=== PATIENT | female | born 1965 | race Caucasian/White ===

== ENCOUNTER 2024-04-12 10:16 | Emergency (ER) | payer OTHER, SELFPAY ==
--- NOTE | ~2024-04-12 | XR_ITS ---
EXAMINATION: XR CHEST CLINICAL INFORMATION: cough, syncope COMPARISON: None available. TECHNIQUE: 2 views of the chest were obtained. FINDINGS: The cardiac, hilar, and mediastinal contours are normal. The lungs are clear bilaterally. There is no pneumothorax or pleural effusion. There is no focal osseous or soft tissue abnormality. Plate and screw fixation of old left clavicular fracture. Cholecystectomy clips in the right upper quadrant. XR/XR chest 2V IMPRESSION: No active pulmonary disease. Electronically signed by: Aniket Azul MD 04/12/2024 11:20 AM [facility]
--- NOTE | ~2024-04-12 | CT_ITS ---
EXAMINATION: CT FACIAL BONES WITHOUT CONTRAST CLINICAL INFORMATION: Head strike, fall, trauma. COMPARISON: None available. TECHNIQUE: Spiral CT of the maxillofacial bones was obtained without IV contrast. Sagittal, coronal, and thin section axial reformatted images were constructed from the axial data set. This CT examination was performed using dose optimization techniques as appropriate, variously including the following: *Automated exposure control *Adjustment of mA and/or kV according to patient size (this includes techniques or standardized protocols for targeted exams where dose is matched to indication/reason for exam; i.e. extremities or head) *Use of iterative reconstruction technique DLP: 271 mGy-cm FINDINGS: -There are comminuted nasal bone fractures bilaterally, presumably acute. Maxillary spines are intact. -No additional fracture of the maxillofacial region. Orbits are intact. -Mandible is intact. -TM joints are intact. -Zygomatic arches are intact. -Pterygoid plates are intact. -Petrous temporal bones are intact. -Calvarium is intact. -Soft tissue laceration to the left upper lip region. Mild soft tissue swelling of the nasion and in the region of the glabella. CT/CT facial bones wo IV con IMPRESSION: 1. Comminuted bilateral nasal bone fractures, presumably acute. No additional maxillofacial fracture. 2. Soft tissue laceration left upper lip. Electronically signed by: Aniket Azul MD 04/12/2024 12:28 PM [facility] [place] [place]
--- NOTE | ~2024-04-12 | CT_ITS ---
EXAMINATION: CT CERVICAL SPINE WITHOUT CONTRAST CLINICAL INFORMATION: Fall, head strike, facial trauma, neck pain. COMPARISON: None available. TECHNIQUE: Spiral CT of the cervical spine was performed in the axial plane from the skull base to the thoracic inlet without IV contrast. Sagittal, coronal, and thin section axial reformatted images were constructed from the axial data set. This CT examination was performed using dose optimization techniques as appropriate, variously including the following: *Automated exposure control *Adjustment of mA and/or kV according to patient size (this includes techniques or standardized protocols for targeted exams where dose is matched to indication/reason for exam; i.e. extremities or head) *Use of iterative reconstruction technique DLP: 413 mGy-cm FINDINGS: -No fracture, compression deformity, or traumatic subluxation. No focal suspicious bony abnormality. -There is a minimal levoconvex scoliosis, apex at C5. -There is reversal of the normal lordosis, centered at C5, nonspecific. -There is a 2 mm degenerative type anterolisthesis C3 on C4, and a 3 mm degenerative retrolisthesis C5 on C6. -Alignment is otherwise anatomic. Craniocervical Junction/C1-C2 Articulations: Intact and aligned. Discs: Severe loss of disc height C5-6. Otherwise only mild loss of disc height. Spinal Canal: -No congenital abnormality. -Moderate central canal narrowing is present C5-6 due to a dorsal disc osteophytic ridge complex. -Mild central canal stenosis at C6-7 due to a central disc protrusion. Cervical Soft Tissues: -The visualized extracranial head/neck soft tissues are unremarkable within the limitations of the study. Other: -Fixation hardware left clavicle noted. -Lung apices clear. -Normal thyroid. CT/CT cervical spine wo IV con IMPRESSION: 1. No CT evidence of fracture or acute traumatic injury to the cervical spine. 2. There is relatively severe disc degeneration focally at C5-6, where there is a dorsal disc osteophytic ridge complex resulting in at least moderate central canal stenosis and likely cord impingement. Correlation with MRI in a nonemergent setting recommended. 3. Ancillary findings as discussed above. Electronically signed by: Aniket Azul MD 04/12/2024 12:37 PM [facility] [place]
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
[2024-04-12 10:19] VITALS: BP 141/86; PULSE 87; RESP 18; TEMP 37; O2SAT 99; BMI 36.6
--- NOTE | 2024-04-12 10:26 | ED_ITS ---
HPI - General Adult General Chief complaint: Syncope Stated complaint: Syncopal episode earlier Time Seen by Provider: 04/12/24 10:25 Source: patient Mode of arrival: ambulatory Limitations: no limitations History of Present Illness ED Provider: Kandy Suarez PA-C HPI narrative: Patient is a 59 year old assigned female at with a history of asthma presenting to the emergency department today with facial pain after a syncopal episode. Patient states that she had a coughing fit this morning when she woke up on the floor after hitting her face. Patient states that she coughed so hard, she passed out. Patient states that this has never happened before and she is not on any anti coagulant medications. Patient denies any dizziness, lightheadedness, abdominal pain, nausea, vomiting, fever, chills, blurry vision, double vision, loss of vision, chest pain, difficulty breathing, shortness of breath, back pain, night sweats, pain with urination, increased urinary frequency, increased urinary urgency, blood in her urine or stool, bowel incontinence, bladder incontinence, or any other complaints at this time. Location: face Relieving factors: none Exacerbating factors: none Associated symptoms: cough and syncope Treatments prior to arrival: none Related Data Previous Rx's ?Medication ?Instructions ?Recorded amoxicillin 875 mg-potassium 1 tab PO BID 10 days #20 tabs 04/12/24 clavulanate 125 mg tablet Allergies Allergy/AdvReac Type Severity Reaction Status Date / Time Sulfa (Sulfonamide AdvReac Stomach Verified 04/12/24 10:21 Antibiotics) Upset Review of Systems 2 Constitutional: Constitutional: Reports no additional constitutional complaints, Denies chills, Denies fever(s) and Denies night sweats Eyes: Eyes: Reports no additional eye complaints, Denies blurry vision, Denies change in vision, Denies diplopia, Denies eye discharge, Denies loss of vision and Denies eye pain ENT: Denies dizziness Comments: facial pain Cardiovascular: Cardiovascular: Reports no additional cardiovascular complaints, Denies chest pain, Reports syncope, Denies lightheadedness, Denies Loss of Consciousness and Denies dyspnea Respiratory: Respiratory: Reports no additional respiratory complaints, Reports cough and Denies dyspnea Gastrointestinal: Gastrointestinal: Reports no additional gastrointestinal complaints, Denies abdominal pain, Denies melena, Denies hematochezia, Denies change in bowel habits and Denies change in stool character Genitourinary: Genitourinary: Denies hematuria, Denies urinary frequency, Denies dysuria, Denies urinary incontinence, Denies urinary hesitancy and Denies urinary urgency Musculoskeletal: Musculoskeletal: Reports no additional musculoskeletal complaints, Denies numbness and Denies tingling Neurologic: Denies dizziness, Reports syncope, Denies loss of vision, Denies numbness and Denies tingling Psychiatric: Psychiatric: Reports no additional psychiatric complaints Endocrine: Endocrine: Reports no additional endocrine complaints Hematologic/Lymphatic: Hematologic/Lymphatic: Reports no additional hematologic/lymphatic complaints Allergic/Immunologic: Allergic/Immunologic: Reports no additional allergic/immunologic complaints [facility] Past Medical History Attestation statement: The following information was validated with the patient. Source: old records reviewed and nursing notes reviewed Social History Social History Advance Directives: No Advance Directives Information Provided: Yes Physical Exam ED Vital Signs: Vital Signs - 24 hr 04/12/24 10:19 04/12/24 11:09 04/12/24 11:10 Temperature 98.6 F Pulse Rate 87 87 Respiratory Rate 18 12 Blood Pressure 141/86 H Pulse Oximetry 99 99 Oxygen Delivery Method Room Air Room Air 04/12/24 13:14 Temperature 97.8 F Pulse Rate 83 Respiratory Rate 16 Blood Pressure 141/83 H Pulse Oximetry 97 Oxygen Delivery Method Room Air BMI result Body Mass Index 36.6 Const General: cooperative, no acute distress, alert and awake Nutritional Appearance: well nourished Orientation/consciousness: patient oriented x3 Limitations: no limitations [facility] Head: Yes normal to inspection Ears: hearing grossly normal bilaterally and external ears normal General nose exam: no nasal discharge noted and no epistaxis Face and sinus: Yes abrasion (to the bridge of nose and above the left upper lip) and No laceration Mouth: Normal oral and palatal mucosa present, no drooling and no muffled voice Eyes General: appearance normal, both eyes and all related structures Periorbital: periorbital findings normal Eyelids: Yes eyelids normal Conjunctivae: conjunctivae normal Pupils: Equal, round and reactive pupils present EOM: EOMs intact bilaterally Neck Neck: Yes normal visual inspection, Yes full ROM and Yes no lymphadenopathy Chest Chest palpation & inspection: normal inspection of the chest Resp Effort & Inspection: normal respiratory effort and able to speak in complete sentences GI Inspection: Yes normal to inspection Neuro General: patient oriented x3 and moves all extremities Cranial nerves: Yes Equal, round and reactive pupils present Cognition (Neuro): normal cognition Extrem General: Yes normal to inspection, Yes full ROM and Yes capillary refill normal Psych Appearance: grossly normal Mental Status: mental status grossly normal Affect: normal affect Attitude: cooperative Thought process: Normal thought process present Thought content: Normal thought content present Insight: Good insight present (Psych) Medications Administered Discontinued Medications Generic Name Dose Route Start Last Admin Trade Name Narendra PRN Reason Stop Dose Admin Albuterol Sulfate 2.5 mg 04/12/24 10:59 04/12/24 11:09 Albuterol Sulfate (0.083%) 2.5 Mg/3 Ml Vial.Neb INHALE 04/12/24 11:00 2.5 mg ONCE ONE Administration Methylprednisolone Sodium Succinate 60 mg 04/12/24 10:40 04/12/24 11:06 Methylprednisolone Sod Succ 125 Mg/2 Ml Vial IVPUSH 04/12/24 10:41 60 mg ONCE ONE Administration Medical Decision Making Medical Decision Making MDM Narrative: Patient is a 59 year old assigned female at with a history of asthma presenting to the emergency department today with facial pain after a syncopal episode. Patient's physical exam was as noted in the physical exam portion of this note. Patient's blood work showed a mildly elevated WBC count of 12.4 but were otherwise unremarkable. Patient's EKG was unremarkable. Patient's CT facial bones showed an acute nasal fracture. Patient's CT head was unremarkable. Patient's CT c-spine showed no acute process but did show severe disc degeneration at the C5-6 level. Patient's chest x-ray showed no acute process. Patient's clinical presentation is most consistent with a nasal fracture after a vasovagal syncopal episode triggered by a coughing fit. I explained my physical exam findings as well as all test results to the patient. I answered all questions asked by the patient. I stressed the importance of the patient taking her medication as directed (either prescribed or as the over the counter packaging recommends). I stressed the importance of the patient following up with her primary care provider, an ENT, and a sales administration specialist. I stressed the importance of the patient returning to the emergency department immediately if her symptoms were to worsen or if she were to develop any dizziness, shortness of breath, difficulty breathing, chest pain, blurry vision, loss of vision, nausea, vomiting, abdominal pain, fever, chills, back pain, or any other complaints. Patient verbalized agreement and understanding with this treatment plan and discharge. Differential Diagnosis Differential Diagnoses: The differential diagnosis associated with the presentation includes Nasal fracture Syncopal episode Vasovagal syncope Admission/Observation Consideration of admission/observation: Escalation of care including admission/observation considered Patient would have been admitted to the hospital had her work up had any findings where hospital admission was appropriate and her clinical presentation warranted hospital admission. Lab Data [facility] Lab Attestation statement: I reviewed the patient's lab results. My interpretation of these results are in the [facility] Rationale portion of this note. 04/12/24 10:53 04/12/24 10:53 Labs: Lab Results 04/12/24 Range/Units 10:53 WBC 12.4 H (4.8-10.8) X10*3/uL RBC 4.95 (4.20-5.50) X10*6/uL Hgb 12.0 (12.0-16.0) g/dl Hct 37.7 (37.0-47.0) % MCV 76.2 L (80.0-98.0) fL MCH 24.2 L (27.0-33.0) pg MCHC 31.8 (31.0-35.0) g/dl RDW 15.7 (11.0-16.0) % Plt Count 281 (160-400) X10*3/uL MPV 9.7 (9.4-12.3) fL Immature Gran % (Auto) 0.4 (0.0-0.4) % Neut % (Auto) 78.0 H (45-73) % Lymph % (Auto) 12.8 L (20-40) % [place] % (Auto) 4.8 (2-11) % Eos % (Auto) 3.4 (0-4) % Baso % (Auto) 0.6 (0-2) % Lymph # (Auto) 1.6 (1.2-4.9) X10*3/uL [place] # (Auto) 0.6 (0.1-1.2) X10*3/uL Eos # (Auto) 0.4 (0.0-0.4) X10*3/uL Baso # (Auto) 0.1 (0.0-0.2) X10*3/uL Abs Immat Gran (auto) 0.05 H (0.00-0.03) X10*3/uL Absolute Neuts (auto) 9.7 H (2.0-8.3) x10*3/uL Absolute Nucleated RBC 0.000 (0.0-0.012) X10*3/uL Nucleated RBC % (auto) 0.0 (0.0-0.2) /100WBC Hold Blue Top SEE NOTE Sodium 139 (135-145) mmol/L Potassium 4.0 (3.3-5.1) mmol/L Chloride 104 (96-108) mmol/L Carbon Dioxide 27 (22-29) mmol/L Anion Gap 12 (12-20) BUN 17 H (9-16) mg/dL Creatinine 0.82 (0.5-1.4) mg/dL Estim Creat Clear Calc 79.2 Estimated GFR > 60 Random Glucose 93 (60-115) mg/dL Calcium 9.5 (8.4-10.2) mg/dL Magnesium 1.9 (1.6-2.6) mg/dL Total Bilirubin 0.3 (0.0-1.0) mg/dL AST 22 (5-31) U/L ALT 32 H (0-31) U/L Alkaline Phosphatase 105 (39-117) U/L Troponin I High Sens < 2.7 (<3.5-17.0) ng/L Total Protein 7.6 (6.5-8.0) g/dL Albumin 4.0 (3.5-5.0) g/dL Influenza Type A (PCR) NEGATIVE (Negative) Influenza Type B (PCR) NEGATIVE (Negative) RSV RNA Qual (PCR) NEGATIVE (Negative) SARS-CoV-2 RNA (RT-PCR) NEGATIVE (Negative) Independent Interpretation I performed an independent interpretation of an: EKG, Plain X-Ray and CT Scan Interpretation: My interpretation is in agreement with the radiologist's impression of these imaging studies. L EXAMINATION: CT CERVICAL SPINE WITHOUT CONTRAST CLINICAL INFORMATION: Fall, head strike, facial trauma, neck pain. COMPARISON: None available. TECHNIQUE: Spiral CT of the cervical spine was performed in the axial plane from the skull base to the thoracic inlet without IV contrast. Sagittal, coronal, and thin section axial reformatted images were constructed from the axial data set. This CT examination was performed using dose optimization techniques as appropriate, variously including the following: *Automated exposure control *Adjustment of mA and/or kV according to patient size (this includes techniques or standardized protocols for targeted exams where dose is matched to indication/reason for exam; i.e. extremities or head) *Use of iterative reconstruction technique DLP: 413 mGy-cm FINDINGS: -No fracture, compression deformity, or traumatic subluxation. No focal suspicious bony abnormality. -There is a minimal levoconvex scoliosis, apex at C5. -There is reversal of the normal lordosis, centered at C5, nonspecific. -There is a 2 mm degenerative type anterolisthesis C3 on C4, and a 3 mm degenerative retrolisthesis C5 on C6. -Alignment is otherwise anatomic. Craniocervical Junction/C1-C2 Articulations: Intact and aligned. Discs: Severe loss of disc height C5-6. Otherwise only mild loss of disc height. Spinal Canal: -No congenital abnormality. -Moderate central canal narrowing is present C5-6 due to a dorsal disc osteophytic ridge complex. -Mild central canal stenosis at C6-7 due to a central disc protrusion. Cervical Soft Tissues: -The visualized extracranial head/neck soft tissues are unremarkable within the limitations of the study. Other: -Fixation hardware left clavicle noted. -Lung apices clear. -Normal thyroid. CT/CT cervical spine wo IV con IMPRESSION: 1. No CT evidence of fracture or acute traumatic injury to the cervical spine. 2. There is relatively severe disc degeneration focally at C5-6, where there is a dorsal disc osteophytic ridge complex resulting in at least moderate central canal stenosis and likely cord impingement. Correlation with MRI in a nonemergent setting recommended. 3. Ancillary findings as discussed above. Electronically signed by: Aniket Azul MD 04/12/2024 12:37 PM [facility] [place] Dictated By: Aniket Azul MD Signed By: Electronically signed by Aniket Azul MD 04/12/24 1237 EXAMINATION: CT HEAD WITHOUT CONTRAST CLINICAL INFORMATION: Head strike trauma COMPARISON: None available. TECHNIQUE: Contiguous axial imaging was performed from the skull base to vertex without intravenous administration of contrast. This CT examination was performed using dose optimization techniques as appropriate, variously including the following: *Automated exposure control *Adjustment of mA and/or kV according to patient size (this includes techniques or standardized protocols for targeted exams where dose is matched to indication/reason for exam; i.e. extremities or head) *Use of iterative reconstruction technique DLP: 602 mGy-cm FINDINGS: No intra or extra-axial fluid collection, hemorrhage, mass, or mass effect. Calvarium intact. CT/CT head/brain wo IV con IMPRESSION: No acute intracranial pathology. Electronically signed by: Quinn Segura MD 04/12/2024 12:06 PM [employer] Dictated By: Quinn Segura MD Signed By: Electronically signed by Quinn Segura MD 04/12/24 1206 EXAMINATION: XR CHEST CLINICAL INFORMATION: cough, syncope COMPARISON: None available. TECHNIQUE: 2 views of the chest were obtained. FINDINGS: The cardiac, hilar, and mediastinal contours are normal. The lungs are clear bilaterally. There is no pneumothorax or pleural effusion. There is no focal osseous or soft tissue abnormality. Plate and screw fixation of old left clavicular fracture. Cholecystectomy clips in the right upper quadrant. XR/XR chest 2V IMPRESSION: No active pulmonary disease. Electronically signed by: Aniket Azul MD 04/12/2024 11:20 AM [employer] Dictated By: Aniket Azul MD Signed By: Electronically signed by Aniket Azul MD 04/12/24 1120 EXAMINATION: CT FACIAL BONES WITHOUT CONTRAST CLINICAL INFORMATION: Head strike, fall, trauma. COMPARISON: None available. TECHNIQUE: Spiral CT of the maxillofacial bones was obtained without IV contrast. Sagittal, coronal, and thin section axial reformatted images were constructed from the axial data set. This CT examination was performed using dose optimization techniques as appropriate, variously including the following: *Automated exposure control *Adjustment of mA and/or kV according to patient size (this includes techniques or standardized protocols for targeted exams where dose is matched to indication/reason for exam; i.e. extremities or head) *Use of iterative reconstruction technique DLP: 271 mGy-cm FINDINGS: -There are comminuted nasal bone fractures bilaterally, presumably acute. Maxillary spines are intact. -No additional fracture of the maxillofacial region. Orbits are intact. -Mandible is intact. -TM joints are intact. -Zygomatic arches are intact. -Pterygoid plates are intact. -Petrous temporal bones are intact. -Calvarium is intact. -Soft tissue laceration to the left upper lip region. Mild soft tissue swelling of the nasion and in the region of the glabella. CT/CT facial bones wo IV con IMPRESSION: 1. Comminuted bilateral nasal bone fractures, presumably acute. No additional maxillofacial fracture. 2. Soft tissue laceration left upper lip. Electronically signed by: Aniket Azul MD 04/12/2024 12:28 PM [facility] [place] Dictated By: Aniket Azul MD Signed By: Electronically signed by Aniket Azul MD 04/12/24 1228 Vent. Rate: 080 BPM Atrial Rate: 080 BPM P-R Int: 168 ms QRS Dur: 088 ms QT Int: 388 ms P-R-T Axes: 041 214 012 degrees QTc Int: 447 ms Normal sinus rhythm Right superior axis deviation No previous ECGs available Referred By: Kandy Suarez Electronically Signed By:Edouard Castellanos Dictated By: Edouard Castellanos MD Signed By: Electronically signed by Edouard Castellanos MD 04/12/24 1420 Radiology Impression Discussion of test interpretation with radiology: I have reviewed the radiologist's reading. Prescription Management I considered prescription management with: Antibiotic (patient prescribed an antibiotic given the abrasion over the nasal fracture) Discharge Plan Discharge Clinical Impression: Vasovagal syncope, Cervical disc disease, Fracture, nasal Patient Disposition: Home, Self-Care Instructions: Nasal Fracture (ED), Syncope (DC), Cervical Disc Herniation (ED) Additional Instructions: Given you have abrasion over your nose and your nose is broken - we are going to cover with an antibiotic. Do NOT blow your nose. Do your best to avoid sneezing. Follow up with an ENT specialist. Your CT of the c-spine showed severe disc disease causing moderate stenosis of your spinal cord - you MUST follow up on this with your primary care provider for further evaluation with a non-emergent MRI. I also recommend speaking to a sales administration specialist. Follow up with your primary care provider. Return to the emergency department immediately if your symptoms worsen or if you develop any dizziness, shortness of breath, difficulty breathing, chest pain, blurry vision, loss of vision, nausea, vomiting, abdominal pain, fever, chills, back pain, or any other complaints. Prescriptions: New amoxicillin-pot clavulanate 875-125 mg tablet 1 tab PO BID 10 Days Qty: 20 0RF Referrals: [facility] [Provider Group] (Call to establish and follow up with an ENT specialist for your nasal fracture.) [facility] [Provider Group] (Call to establish and follow up with a primary care provider. If you already have a primary care provider, please follow up with them.) [facility] [place] [facility] [Provider [facility]] (Call to establish and follow up with a primary care provider. If you already have a primary care provider, please follow up with them.) [facility] [place] [facility] [Provider Group] (Call to establish and follow up with a primary care provider. If you already have a primary care provider, please follow up with them.) [facility] [place] [facility] [Provider Group] (Call to establish and follow up with a sales administration specialist. Inform them you need a consultation regarding severe disc degeneration at C5-6 causing moderate central canal stenosis and likely cord impingement.) [facility] [Provider Group] (Call to establish and follow up with a sales administration specialist. Inform them you need a consultation regarding severe disc degeneration at C5-6 causing moderate central canal stenosis and likely cord impingement.) [facility] [address] [Physician] - (Call to establish and follow up with an ENT specialist for your nasal fracture.) Leonela Hinson, CAROLINE [Nurse Practitioner] - Stand Alone Forms: Work/School Release Discharge Date/Time: 04/12/24 13:30 Print Language: Yakut
--- NOTE | 2024-04-12 10:40 | ECG_ITS ---
Test Reason : SYNCOPE Blood Pressure : / mmHG Vent. Rate : 080 BPM Atrial Rate : 080 BPM P-R Int : 168 ms QRS Dur : 088 ms QT Int : 388 ms P-R-T Axes : 041 214 012 degrees QTc Int : 447 ms Normal sinus rhythm Right superior axis deviation Low voltage QRS Abnormal ECG No previous ECGs available Referred By: Kandy Suarez Electronically Signed By:Edouard Castellanos
[2024-04-12 10:56] LABS: MANUAL DIFF FLAG NO
[2024-04-12 11:01] LABS: Basophils Absolute Auto 0.1 X10*3/uL (0.0-0.2); Basophils Percent Auto 0.6 % (0-2); Eosinophils Absolute Auto 0.4 X10*3/uL (0.0-0.4); Eosinophils Percent Auto 3.4 % (0-4); Hematocrit 37.7 % (37.0-47.0); Imm Gran Abs Auto 0.05 X10*3/uL (0.00-0.03); Imm Gran Pct Auto 0.4 % (0.0-0.4); Lymphocytes Absolute Auto 1.6 X10*3/uL (1.2-4.9); Lymphocytes Percent Auto 12.8 % (20-40); Mean Corpuscular HGB Conc 31.8 g/dl (31.0-35.0); Mean Corpuscular Hemoglobin 24.2 pg (27.0-33.0); Mean Corpuscular Volume 76.2 fL (80.0-98.0); Mean Platelet Volume 9.7 fL (9.4-12.3); Monocytes Absolute Auto 0.6 X10*3/uL (0.1-1.2); Monocytes Percent Auto 4.8 % (2-11); Neutrophils Absolute Auto 9.7 x10*3/uL (2.0-8.3); Platelet Count 281 X10*3/uL (160-400); Red Blood Count 4.95 X10*6/uL (4.20-5.50); Red Cell Distribution Width 15.7 % (11.0-16.0); White Blood Count 12.4 X10*3/uL (4.8-10.8)
[2024-04-12] MEDS: methylPREDNISolone Sod Succ 125 MG/2 ML VIAL 60 MG IVPUSH (11:06)
[2024-04-12 11:09] VITALS: O2SAT 99
[2024-04-12] MEDS: Albuterol Sulfate (0.083%) 2.5 MG/3 ML VIAL.NEB INHALE (11:09)
[2024-04-12 11:10] VITALS: PULSE 87; RESP 12; O2SAT 98
--- NOTE | 2024-04-12 11:11 | PC.NURSE ---
alert and oriented with even and unlabored respirations. respiratory at bedside for updraft. small laceration noted to patient's upper lip, bleeding is controlled. IV established, labs/swab obtained and sent. awaiting results of xray. ambulates independently with strong, steady gait.
[2024-04-12 11:17] LABS: Anion Gap 12 (12-20); Aspartate Amino Transferase 22 U/L (5-31); Bilirubin Total 0.3 mg/dL (0.0-1.0); Blood Urea Nitrogen 17 mg/dL (9-16); Calcium 9.5 mg/dL (8.4-10.2); Carbon Dioxide 27 mmol/L (22-29); Chloride 104 mmol/L (96-108); Creatinine Clr Calc Pharmacy 79.2; Estimated Glomerular Filt Rate > 60; Glucose Random 93 mg/dL (60-115); Magnesium 1.9 mg/dL (1.6-2.6); Sodium 139 mmol/L (135-145); Total Protein 7.6 g/dL (6.5-8.0)
[2024-04-12 11:21] LABS: Troponin-I High Sensitivity < 2.7 ng/L (<3.5-17.0)
[2024-04-12 11:35] LABS: Alanine Aminotransferase 32 U/L (0-31); Alkaline Phosphatase 105 U/L (39-117)
[2024-04-12 11:39] LABS: Influenza A PCR NEGATIVE (Negative); Influenza B PCR NEGATIVE (Negative); Resp Syncy Virus RNA Qual PCR NEGATIVE (Negative); SARS COV2 PCR INHOUSE NEGATIVE (Negative)
[2024-04-12 13:14] VITALS: BP 141/83; PULSE 83; RESP 16; TEMP 36.6; O2SAT 97
== END 2024-04-12 13:30 | disposition home or self-care (01) ==
PROVIDERS: Physician Assistant Medical; Emergency Provider Student in an Organized Health Care Education/Training Program
DX: S02.2XXA Fracture of nasal bones, initial encounter for closed fracture (principal); R55 Syncope and collapse; R05.9 Cough, unspecified; R51.9 Headache, unspecified; M54.2 Cervicalgia; W18.30XA Fall on same level, unspecified, initial encounter; Y93.89 Activity, other specified; Y92.89 Other specified places as the place of occurrence of the external cause; Y99.8 Other external cause status; Z79.899 Other long term (current) drug therapy; Z03.818 Encounter for observation for suspected exposure to other biological agents ruled out
CPT/HCPCS: 0241U; 70450; 70486; 71046; 72125; 80053; 83735; 84484; 85025; 93005; 94640; 96374; 99284; 99285; J2919

== ENCOUNTER → 2024-04-12 10:40 | Outpatient (BNV) | payer OTHER, SELFPAY | PROVIDERS: Emergency Provider Student in an Organized Health Care Education/Training Program; Visit Provider Radiology Diagnostic Radiology | DX: R55 Syncope and collapse (principal); R05.9 Cough, unspecified; M54.2 Cervicalgia | CPT/HCPCS: 70486; 71046; 72125 ==

== ENCOUNTER → 2024-04-12 10:40 | Outpatient (BNV) | payer OTHER, SELFPAY | PROVIDERS: Emergency Provider Student in an Organized Health Care Education/Training Program; Visit Provider Internal Medicine Cardiovascular Disease | DX: R55 Syncope and collapse (principal) | CPT/HCPCS: 93010 ==

== ENCOUNTER 2024-07-13 11:11 | Outpatient (AMB) | payer OTHER, SELFPAY ==
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
[2024-07-13 11:29] VITALS: BP 112/62; PULSE 70; TEMP 36.2; O2SAT 96; BMI 37.9
== END 2024-07-13 12:16 | disposition home or self-care (01) ==
LOC: HO.HMCH 11:11
PROVIDERS: Visit Provider Physician Assistant
DX: M50.022 Cervical disc disorder at C5-C6 level with myelopathy (principal); E66.812 Obesity, class 2; Z12.31 Encounter for screening mammogram for malignant neoplasm of breast; Z68.37 Body mass index [BMI] 37.0-37.9, adult

== ENCOUNTER → 2024-07-13 11:11 | Outpatient (BNVA) | payer OTHER, SELFPAY | PROVIDERS: Visit Provider Physician Assistant | DX: Z76.89 Persons encountering health services in other specified circumstances (principal); J45.40 Moderate persistent asthma, uncomplicated; E66.812 Obesity, class 2; Z68.37 Body mass index [BMI] 37.0-37.9, adult; M50.022 Cervical disc disorder at C5-C6 level with myelopathy | CPT/HCPCS: 96127 ==

== ENCOUNTER → 2024-07-24 10:40 | Outpatient (BNV) | payer OTHER, SELFPAY | PROVIDERS: PCP Physician Assistant; Visit Provider Radiology Diagnostic Radiology | DX: M47.812 Spondylosis without myelopathy or radiculopathy, cervical region (principal); M99.61 Osseous and subluxation stenosis of intervertebral foramina of cervical region | CPT/HCPCS: 72141 ==

== ENCOUNTER 2024-07-24 10:41 | Outpatient (REF) | payer OTHER, SELFPAY ==
--- NOTE | ~2024-07-24 | MR_ITS ---
CLINICAL HISTORY: M50.022 - Cervical disc disorder at C5-C6 level with myelopathy MR of the cervical spine without contrast. COMPARISON: CT cervical spine dated 04/12/24 at 11:19 EST FINDINGS: Straightening of the normal cervical lordosis. Rightward curvature of the lower cervical spine. Vertebral heights are maintained. Marrow signal is benign. Visualized posterior fossa is normal. No abnormal signal within the normal caliber cervical spinal cord. No syringomyelia or cervical epidural fluid collection. C2-C3: Facet and uncovertebral joint arthrosis. Moderate right neural foraminal narrowing. C3-C4: Small posterior disc osteophyte complex indents the anterior subarachnoid space but does not abut or deform the cord. Uncovertebral joint hypertrophy. [id number] right neural foraminal narrowing. C4-C5: Posterior disc osteophyte complex indents the anterior subarachnoid space but does not abut or deform the cord. Anterior marginal osteophytes. Uncovertebral joint hypertrophy. [id number] right neural foraminal narrowing. Mild spinal canal stenosis at this level. C5-C6: Loss of disc space height. Posterior disc osteophyte complex indents the anterior subarachnoid space and abuts and deforms the cord. There is effacement of the posterior subarachnoid space. Severe spinal canal stenosis at this level measuring 6 mm. Anterior marginal osteophytes. Uncovertebral joint hypertrophy. Severe bilateral neural foraminal narrowing. C6-C7: Small central posterior disc bulge indents the anterior subarachnoid space but does not abut the cord. No significant neural foraminal narrowing. Mild spinal canal stenosis at this level. Visualized paraspinal soft tissues are unremarkable. IMPRESSION: 1. Severe spinal canal stenosis at C5-6 2. Mild spinal canal stenosis at C4-5 and C6-7. 3. Straightening of the normal cervical lordosis. 4. Multilevel cervical spondylosis most pronounced at C5-6 where there is severe bilateral neural foraminal narrowing. This document has been electronically signed by: Santiago Chavarria MD on 07/25/2024 12:57:24
--- OUTSIDE RECORDS SUMMARY | 2024-07-24 10:48 | XMS_ITS | Clinical Summary ---
Author Organization [facility] Address [address] [place] [address] Phone Care Team Providers Care Coloring Checker Name Role Phone Physician, Pcp Unknown Primary Care Provider Jovanna vailable Allergies Active Allergy Reactions Criticality Noted Date Comments Sulfa (Sulfonamide Antibiotics) 09/2024 Medications famotidine (PEPCID) 20 mg tablet Take 1 tablet (20 mg total) by mouth 2 (two) times a day. 14 tablet 04/26/2024 Active predniSONE (DELTASONE) 20 mg tablet Take 3 tablets (60 mg total) by mouth 1 (one) time each day. 15 tablet 04/26/2024 Active Encounters Date Type Department Care Team Description 04/25/2024 10:53 PM EST - 04/26/2024 1:31 AM EST Emergency [facility] Emergency [address] [place] [address] Allergic reaction, initial encounter (Primary Dx) Discharge Disposition: Home or Self Care from Last 3 Months Surgical History Surgery Date Site/Laterality Comments CHOLECYSTECTOMY ROTATOR CUFF REPAIR CLAVICLE SURGERY Left Medical History Medical History Date Comments Asthma Social History Tobacco Use Types Packs/Day Years Used Date Smoking Tobacco: Never Tobacco Cessation:Counseling Given: Not Answered Alcohol Use Standard Drinks/Week Comments Not Currently 0 (1 standard drink = 0.6 oz pur e alcohol) Comments Unknown Sex and Gender Information Value Date Recorded Sex Assigned at Not on file Legal Sex Female 10:43 PM EST Gender Identity Not on file Sexual Orientation Not on file Obstetrics History Last Filed Vital Signs Vital Sign Reading Time Taken Comments Blood Pressure 116/76 04/25/2024 11:39 PM EST Pulse 88 04/25/2024 11:39 PM EST Temperature 36.4 ??C (97.5 ??F) 04/25/2024 11:[address] Respiratory Rate 18 04/25/2024 11:39 PM EST Oxygen Saturation 97% 04/25/2024 11:39 PM EST Inhaled Oxygen Concentration - - Weight 89.4 kg (197 lb) 04/25/2024 10:55 PM EST Height 157.5 cm (5' 2 ) 04/25/2024 10:55 PM EST Body Mass Index 36.03 04/25/2024 10:55 PM EST Plan of Treatment Health Maintenance Due Date Last Done Comments Breast Cancer Screening 1967 DTaP,Tdap,and Td Vaccines (1 - Tdap) 1986 Hepatitis B Vaccines (1 of 3 - 19+ 3-dose series) 1986 Cervical Cancer Screening: P ap Smear 1988 Pneumococcal Vaccine: 50+ Ye ars (1 of 1 - PCV) 2017 Zoster Vaccines (1 of 2) 2017 COVID-19 Vaccine ( - 2023-2 5 season) 2023 Influenza Vaccine (#1) 2023 Colorectal Cancer Screening: Colonoscopy 04/26/2024 Depression Screening 04/26/2024 HIV Screening 04/26/2024 Hepatitis C Screening 04/26/2024 Social Influencers of Health Screening 04/26/2024 HIB Vaccines Aged Out No longer eligi ble based on patient's age to complete this topic HPV Vaccines Aged Out No longer eligi ble based on patient's age to complete this topic Hepatitis A Vaccines Aged Out No long er eligible based on patient's age to complete this topic IPV Vaccines Aged Out No longer eligi ble based on patient's age to complete this topic MMR Vaccines Aged Out No longer eligi ble based on patient's age to complete this topic Meningococcal ACWY Vaccine Aged Out N o longer eligible based on patient's age to complete this topic Meningococcal B Vacine Aged Out No lo nger eligible based on patient's age to complete this topic Pneumococcal Vaccine: Pediat rics (0 to 5 Years) and At-Risk Patients (6 to 64 Years) Aged Out No longer eligible b ased on patient's age to complete this topic RSV Immunization Patients Un xenia 20 months Aged Out No longer eligible b ased on patient's age to complete this topic Varicella Vaccines Aged Out No longer eligible based on patient's age to complete this topic Insurance [facility] Care Teams Coloring Checker Relationship Specialty Start Date End Date Physician, Pcp Unknown PCP - General 04/26/24
== END 2024-07-24 10:42 | disposition home or self-care (01) ==
LOC: HO.MRI 10:41
PROVIDERS: PCP Physician Assistant; Visit Provider Physician Assistant
DX: M50.022 Cervical disc disorder at C5-C6 level with myelopathy (principal)
CPT/HCPCS: 72141

== ENCOUNTER 2024-07-29 10:27 | Outpatient (AMB) | payer OTHER, SELFPAY ==
--- NOTE | 2024-07-29 10:51 | A.SPINEOV_ITS ---
Intake Visit Reasons: cervical stenosis Intake Note: Mr. Ardon is here today c/o neck pain. [place] [facility] [place] Running Instructor Required: No Allergies Sulfa (Sulfonamide Antibiotics) Adverse Reaction (Verified 07/13/24 11:51) Stomach Upset Assessment & Plan Assessment & Plan (1) Cervical stenosis of spine: Code(s): M48.02 - Spinal stenosis, cervical region Category: Medical Plan Dear Isaiah, Thank you for referring Mrs Lara to our office today. She is a very nice 59- year-old female who has had on and off dizziness since the fall she took sometime in March of 2024. At that time apparently she was coughing and she passed out, broke her nose an injured her lip. The dizziness is something she has dealt with in the past. She describes it as vertigo. She has done various maneuvers and physical therapy exercises with her head to make it go away. At this point it is more less a symptom that is hanging around in the background but not something that stops her from doing her activities such as riding horses, work etc.. She does have a component of neck pain but it is really just a mild discomfort and nothing that is really bothering her. She takes no medication for it. She has no pain radiating down her arms, no myelopathic symptoms such as weakness, numbness, imbalance, fine motor loss. She is here today to follow up on an MRI showing degenerative disc disease and stenosis at C5-6. PMH: History of asthma, left clavicle repair, ACL repair, rotator cuff repair, cholecystectomy. Social hx: She has not smoke, drink use any recreational drugs Medications: Omeprazole, albuterol, Advair Allergies: Sulfa Physical exam: Awake alert oriented no acute distress, gait normal, tandem gait walking excellent balance, Romberg negative, extraocular movements intact, no nystagmus, strength and reflexes normal, no Espinosa's, no clonus Imaging review: Cervical MRI shows degenerative disc disease at C5-6 with moderate to severe stenosis, no cord signal change Impression: 59-year-old female presents for evaluation of dizziness intermittent, low-grade at this point. It may have started after a fall but she is not exactly sure. The symptoms started 2 months after the fall so I do not think it is connected. I do not think her dizziness has anything to do with the findings on her MRI. There is no cord signal change or suggestion that there is spinal cord compression here on the imaging. She has some basic degenerative disc disease which is crowding around the spinal cord but not compressing it. Her physical exam shows no signs of myelopathy. It is nothing we need to do surgery for. I did explain to her the symptoms and what to look for down the road if things progress. It may or may not ever need to be addressed, these things can be incidentally found on patient's in his well-known to often time never need surgery. She will call us down the road if she develops symptoms. Thank you for allowing us to care for your patient. The total time spent with this visit with this patient was 45 minutes reviewing history, physical exam, cervical imaging review, and implementation of treatment plan or further diagnostic testing Godwin Chaparro MD,PhD [facility] Coding Level of Care Code New Pt Level 4 (05320) Diagnoses Cervical stenosis of spine M48.02
--- OUTSIDE RECORDS SUMMARY | 2024-07-29 11:15 | XMS_ITS | Clinical Summary ---
Author Organization [facility] Address [address] [place] [address] Phone Care Team Providers Care Bar Pointer Name Role Phone Physician, Pcp Unknown Primary [...] time each day. 15 tablet 04/26/2024 Active Surgical History Surgery Date Site/Laterality Comments CHOLECYSTECTOMY [...] Vaccine ( - 2023-2 5 season) 2023 Colorectal Cancer Screening: Colonoscopy 04/26/2024 Depression Screening 04/26/2024 HIV Screening 04/26/2024 Hepatitis C Screening 04/26/2024 Social Influencers of Health Screening 04/26/2024 Influenza Vaccine (Season Ended) 2024 HIB Vaccines Aged Out No longer eligi [...] age to complete this topic Meningococcal B Vaccine Aged Out No l onger eligible based on patient's age to complete [...] patient's age to complete this topic Insurance [facility] Care Teams Bar Pointer Relationship Specialty Start Date End Date Physician, Pcp Unknown PCP - General 04/26/24
== END 2024-07-29 11:08 | disposition home or self-care (01) ==
LOC: HO.HNS 10:28
PROVIDERS: PCP Physician Assistant; Referring Provider Physician Assistant; Visit Provider Physician Assistant
DX: M48.02 Spinal stenosis, cervical region (principal)
CPT/HCPCS: 99204

== ENCOUNTER 2024-08-24 07:51 | Outpatient (REF) | payer OTHER, SELFPAY ==
--- NOTE | 2024-08-24 07:57 | PFT_ITS ---
Indication: Asthma Spirometry [FEV1 to FVC 76%; FEV1 2.25 L; FVC 2.97 L. No significant response to bronchodilators noted.] Lung Volumes [Total lung capacity 92% predicted; expiratory reserve volume 20% predicted] Diffusion Capacity [DLCO 116% predicted] Comparisons [none] Interpretation [No obstructive nor restrictive ventilatory defects identified. No significant response to bronchodilators noted. Normal lung volumes except for decrease in the expiratory reserve volume secondary to an elevated BMI. The diffusing capacity is high normal. Clinical correlation warranted.] MTDD
[2024-08-24 08:42] VITALS: PULSE 73; O2SAT 98
[2024-08-24 09:02] LABS: Hematocrit 35.5 % (37.0-47.0); Hemoglobin 11.2 g/dl (12.0-16.0); Mean Corpuscular HGB Conc 31.5 g/dl (31.0-35.0); Mean Corpuscular Hemoglobin 23.3 pg (27.0-33.0); Platelet Count 272 X10*3/uL (160-400); Red Cell Distribution Width 15.9 % (11.0-16.0); White Blood Count 5.3 X10*3/uL (4.8-10.8)
[2024-08-24 09:36] LABS: Alanine Aminotransferase 34 U/L (0-31); Albumin Level 3.9 g/dL (3.5-5.0); Alkaline Phosphatase 104 U/L (39-117); Anion Gap 10 (12-20); Aspartate Amino Transferase 24 U/L (5-31); Bilirubin Total 0.4 mg/dL (0.0-1.0); Blood Urea Nitrogen 16 mg/dL (9-16); Calcium 9.1 mg/dL (8.4-10.2); Carbon Dioxide 27 mmol/L (22-29); Chloride 107 mmol/L (96-108); Cholesterol 178 mg/dL (<200); Estimated Glomerular Filt Rate > 60; Glucose Fasting 106 mg/dL (60-99); HDL Cholesterol 51 mg/dL (>40); LDL Cholesterol Calculated 111 mg/dL (<100); Potassium 4.3 mmol/L (3.3-5.1); Sodium 140 mmol/L (135-145); Triglycerides 80 mg/dL (<150)
== END 2024-08-24 07:52 | disposition home or self-care (01) ==
LOC: HO.RESP 07:51
PROVIDERS: PCP Physician Assistant; Visit Provider Physician Assistant
DX: J45.909 Unspecified asthma, uncomplicated (principal); E78.5 Hyperlipidemia, unspecified
CPT/HCPCS: 36415; 80053; 80061; 85027; 94010; 94640; 94727; 94729

== ENCOUNTER → 2024-08-24 07:57 | Outpatient (BNV) | payer OTHER, SELFPAY | PROVIDERS: PCP Physician Assistant; Visit Provider Hospitalist | DX: J45.909 Unspecified asthma, uncomplicated (principal) | CPT/HCPCS: 94060; 94727; 94729 ==

== ENCOUNTER → 2024-08-26 16:00 | Outpatient (BNV) | payer OTHER, SELFPAY | PROVIDERS: PCP Physician Assistant; Visit Provider Internal Medicine | DX: Z12.31 Encounter for screening mammogram for malignant neoplasm of breast (principal) | CPT/HCPCS: 77063; 77067 ==

== ENCOUNTER 2024-08-26 16:01 | Outpatient (REF) | payer OTHER, SELFPAY ==
--- OUTSIDE RECORDS SUMMARY | 2024-08-26 16:03 | XMS_ITS | Clinical Summary ---
Author Organization [facility] Address [address] [place] [address] Phone Care Team Providers Care Aircraft Rigging And Controls Mechanic Name Role Phone Physician, Pcp Unknown Primary [...] patient's age to complete this topic Insurance [facility] Care Teams Aircraft Rigging And Controls Mechanic Relationship Specialty Start Date End Date Physician, Pcp Unknown PCP - General 04/26/24
== END 2024-08-26 16:02 | disposition home or self-care (01) ==
LOC: HO.MAMMO 16:01
PROVIDERS: PCP Physician Assistant; Visit Provider Physician Assistant
DX: Z12.31 Encounter for screening mammogram for malignant neoplasm of breast (principal)
CPT/HCPCS: 77063; 77067

== ENCOUNTER 2024-09-20 10:40 | Outpatient (AMB) | payer OTHER, SELFPAY ==
--- NOTE | 2024-09-20 10:44 | MHC.PC.OV ---
Vital Signs 09/20/24 10:45 Height 5 ft 2 in Weight 203 lb BMI 37.1 BP 130/70 Blood Pressure Location Lt brachial Position Sitting Pulse 101 H Pulse Source Pulse Oximeter Temp 97.1 F Temp Source Temporal Artery Scan Pulse Oximetry (%) 96 Oxygen Delivery Method Room Air Intake Visit Reasons: pe Intake Note: Patient is here today for a physical. Channel Opener Outsoles Required: No Loss Prevention Research Engineer: Not Required per policy Accompanied by: Self / Same As Patient Allergies Sulfa (Sulfonamide Antibiotics) Adverse Reaction (Verified 09/20/24 11:12) Stomach Upset Medication List - Last Reconciled 09/20/24 by Isaiah Guardado PA-C albuterol sulfate 90 mcg/actuation 2 puffs inhalation Q4H 30 days albuterol sulfate 2.5 mg (3 mL) inhalation Q6H PRN 30 days fluticasone propion-salmeterol 250-50 mcg/dose (Advair Diskus) 1 inh inhalation BID 30 days Tobacco use date assessed: 09/20/24 Dental Screening Dental Screen Date: 07/13/24 HPI pe HPI Details Patient is a 59-year-old female here today for a routine annual physical. Patient has a past medical history significant for moderate persistent asthma, obesity, cervical spine disease. .. Asthma: Patient reports having moderate asthma to which she is dependent on a maintenance inhaler. Due to moving out of her home state she has not had much asthma medication. She does report having some shortness of breath quite often and does feel tight in her chest. Patient has undergone a pulmonary function test that showed some improvement in her pulmonary function with bronchodilator. She reports had for has not been as effective for recently. She has been using her nebulizer which does seem to help resolve her shortness of breath and wheeze. She has unsure her breathing issues related to allergies or poor air quality. 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 .. Cervical disc disorder: Recent CT of neck showing severe cervical disc disorder as C5-C6, she has followed up with neurosurgery whom does not believe she needs a surgical procedure at this time. Colorectal cancer screening:willing to do colonoscopy Mammograms: Mammogram done in August of 2024 BI-RADS 1 Vaccines: Up-to-date with pneumonia vaccine, flu vaccine, considering tetanus vaccine . [facility] Medical History GERD (gastroesophageal reflux disease) Motion sickness Vertigo Diaphragmatic hernia without obstruction or gangrene Hyperlipidemia Benign paroxysmal vertigo Asthma Surgical History S/P ACL reconstruction S/P rotator cuff repair Hx laparoscopic cholecystectomy Family History (Updated 09/20/24 @ 11:17 by Isaiah Guardado PA-C) Maternal Grandmother Type II diabetes mellitus Mother Stroke (cerebrum) Brainstem hemorrhage Afib Father Prostate cancer Sister Breast cancer Social History (Updated 09/20/24 @ 11:18 by Isaiah Guardado PA-C) Housing: Apartment Alcohol intake: current Alcohol intake frequency: holidays/special occasions only Alcohol type: beer Patient Tobacco Use Status: Never used Tobacco e-Cigarette/Vaping Use: Never Used Second Hand Smoke Exposure: No service: No Current occupational status: employed Current occupation: [employer] Cognitive needs: No Hearing needs: No Vision needs: Yes Questionnaire Thrive Questionnaire Date Thrive assessed: 07/13/24 I am a: Patient What is your living situation today?: I have a steady place to live Within the past 12 months, did the food you bought not last and you didn't have the money to get more?: Never true Within the past 12 months, did you worry whether your food would run out before you got money to buy more?: Never true Do you have trouble paying for medicines?: No Do you have trouble getting transportation to medical appointments?: No Do you have trouble paying your heating and electricity bill?: No Do you have trouble taking care of your child, family member or friend?: No Do you have trouble with day-to-day activities such as bathing, preparing meals, shopping, managing finances, etc.?: No Are you currently unemployed and looking for a job?: No Are you interested in more education?: No Please select the resources that you would like help with: None THRIVE Score: 0 LETICIA-7 AMB Questionnaire LETICIA-7 Date LETICIA - 7 assessed: 07/13/24 Source: Developed by Drs. Sloan Brady, Almita Pena, Cali Hua and colleagues, with an educational jennifer from [employer]. Review of Systems Const Denies excessive sweating, Denies fatigue and Denies headache(s) Eyes Denies loss of vision ENT Denies vertigo, Denies dizziness, Denies headache(s) and Denies sore throat Card Denies chest pain, Denies leg edema and Denies lightheadedness Resp Reports cough, Denies hemoptysis and Reports wheezing GI Denies abdominal pain, Denies melena, Denies constipation, Denies diarrhea and Denies vomiting Denies urinary frequency, Denies dysuria and Denies urinary urgency Musc Denies arthralgias, Denies joint swelling, Denies numbness and Denies tingling Skin/Breast Denies rash and Denies skin ulcer Neuro Denies Abnormal speech present, Denies behavioral changes, Denies vertigo, Denies dizziness, Denies headache(s), Denies loss of vision, Denies memory loss, Denies numbness and Denies tingling Psych Denies anxiety, Denies behavioral changes, Denies depression, Denies memory loss and Denies panic attacks Endo Denies excessive sweating, Denies fatigue, Denies flushing, Denies polydipsia and Denies polyuria Ajay/Lymph Denies easy bleeding and Denies easy bruising Aller/Immun Reports wheezing Physical exam (Primary Care) Vital Signs: Last Vital Signs Temp 97.1 F 09/20/24 10:45 Pulse 101 H 09/20/24 10:45 BP 130/70 09/20/24 10:45 Pulse Ox 96 09/20/24 10:45 Oxygen Delivery Method Room Air 09/20/24 10:45 BMI result Body Mass Index 37.1 Tobacco/Smoking Status: Tobacco use Status Tobacco use date assessed 09/20/24 09/20/24 10:49 Patient Tobacco Use Status Never used Tobacco 09/20/24 11:18 e-Cigarette/Vaping Use Never Used 09/20/24 11:18 Thrive Assessment: Date of Thrive Assessment Date Thrive assessed 07/13/24 09/20/24 10:49 Const General: healthy appearing, no acute distress, alert and awake Nutritional Appearance: well nourished Orientation/consciousness: oriented to person, oriented to place and oriented to time HENMT Head: Yes normocephalic Ears: TM's normal bilaterally General nose exam: Normal nasal mucous membranes and turbinates present Face and sinus: No sinus tenderness Mouth: Normal oral and palatal mucosa present and tongue normal Teeth and gingiva: dentition normal and gingiva normal Throat: Yes posterior oropharynx normal, Yes tonsils normal and Yes uvula midline Eyes Conjunctivae: conjunctivae normal Sclerae: sclerae normal Pupils: Equal, round and reactive pupils present EOM: EOMs intact bilaterally Direct Ophthalmoscopy: No no photophobia Neck Neck: Yes no lymphadenopathy and Yes no JVD Thyroid: Thyroid normal Carotids: no bruits Chest Chest palpation & inspection: no tenderness Resp Effort & Inspection: normal respiratory effort and not tachypneic Auscultation: no crackles, no rales, no rhonchi and no wheezes Cardio Jugular venous distension: no JVD Rate: regular rate Rhythm: regular rhythm Heart sounds: no murmurs and normal S1 and S2 Bruits: no carotid bruits Peripheral pulses: Peripheral pulses 2+ throughout GI Inspection: Yes normal to inspection, No abdominal wall ecchymosis and No visible herniation Palpation (GI): Soft to palpation, nontender, no hepatomegaly and no splenomegaly Auscultation: normal bowel sounds General: Yes no CVA tenderness Back/Spine/Pelvis Back: no CVA tenderness and No back tenderness Cervical Spine: cervical ROM normal Thoracic/Lumbar Spine: thoracic and lumbar spine normal to inspection, straight leg raise negative bilaterally, No thoraco-lumbar ROM limited and No lumbar spinal tenderness Skin General skin exam: no rashes or lesions noted and dry skin Lesions: no lesions Rashes: no rashes Wounds: no wounds Neuro General: oriented to person, oriented to place and oriented to time Cranial nerves: Yes Equal, round and reactive pupils present Cognition (Neuro): normal cognition Speech: No Abnormal speech present Gait exam (Neuro): Normal gait present Motor exam (neuro): no tremor noted Extrem Right upper extremity: full ROM Left upper extremity: full ROM Right lower extremity: full ROM; no edema Left lower extremity: full ROM; no edema Psych Appearance: grossly normal Mental Status: mental status grossly normal Speech and movement: Normal speech and movement present Affect: normal affect Attitude: cooperative Thought process: Normal thought process present Immunizations Boostrix Tdap 2.5 Lf unit-8 mcg-5 Lf/0.5 mL intramuscular syringe Performing Provider: Isaiah Guardado PA-C [facility] Administered by: Berta Marte LPN on 09/20/24 11:57 Dose Route Admin Location Dispensed Lot Number Expiration Date NDC Storage Management Architect 0.5 mL IM Left Deltoid 0.5 mL [id number] 12/16/26 [id number] [employer] VIS Given Date VIS Provided VIS Publication Date 09/20/24 Single Vaccine 20 Eligibility Eligibility Date Funding Source Not [facility] Eligible 09/20/24 Private Coding Level of Care Code Est Pt Prev Care 40-64y(34175) Diagnoses Annual physical exam Z00.00 ODILIA (obstructive sleep apnea) G47.33 Moderate persistent asthma without complication J45.40 Asthma complication type: uncomplicated Asthma persistence: persistent Asthma severity: moderate Mixed hyperlipidemia E78.2 Hyperlipidemia type: mixed hyperlipidemia Cervical disc disorder at C5-C6 level with myelopathy M50.022 Assessment & Plan Assessment & Plan (1) Annual physical exam: Code(s): Z00.00 - Encounter for general adult medical examination without abnormal findings Category: Medical Plan: As per HPI (2) ODILIA (obstructive sleep apnea): Code(s): G47.33 - Obstructive sleep apnea (adult) (pediatric) Category: Medical Plan: Patient has a history of obstructive sleep apnea though has not been using her CPAP machine. (3) Asthma: Code(s): J45.909 - Unspecified asthma, uncomplicated Category: Medical Qualifiers: Asthma complication type: uncomplicated Asthma persistence: persistent Asthma severity: moderate Qualified Code(s): J45.40 - Moderate persistent asthma, uncomplicated Plan: Patient's asthma seems to have gotten worse since moving from [place] to [place]. Pulmonary function test has been done on showing some improvement in bronchodilator. She does admit to using her nebulizer quite often and though does significantly help her breathing. Does use Advair daily. Will add on montelukast to try to help her asthma symptoms if perhaps related to allergies. Will refer to pulmonology for further investigation and recommendations on new maintenance inhaler (4) Hyperlipidemia: Code(s): E78.5 - Hyperlipidemia, unspecified Category: Medical Qualifiers: Hyperlipidemia type: mixed hyperlipidemia Qualified Code(s): E78.2 - Mixed hyperlipidemia Plan: Patient's most recent lipid panel showing good control over total cholesterol and LDL. At this time her hyperlipidemia his diet managed. Goal LDL is to remain below 130 (5) Cervical disc disorder at C5-C6 level with myelopathy: Code(s): M50.022 - Cervical disc disorder at C5-C6 level with myelopathy Category: Medical Plan: As per HPI patient did follow up with Neurosurgery for her cervical spine disc disease. She is not a surgical candidate at this time as her symptoms are not severe. Orders: Orders Resp Allergy Profile Region I 09/20/24 J45.909 - Unspecified asthma, uncomplicated, R05.9 - Cough, unspecified TDaP Immunization 09/20/24 J45.40 - Moderate persistent asthma, uncomplicated, Z23 - Encounter for immunization Referrals Pulmonology Referral G47.33 - Obstructive sleep apnea (adult) (pediatric), J45.40 - Moderate persistent asthma, uncomplicated Medications: New montelukast 10 mg PO DAILY 30 days 30 tabs 1RF J45.909 - Unspecified asthma, uncomplicated Refilled albuterol sulfate 90 mcg/actuation 2 puffs inhalation Q4H 30 days 8.5 grams 3RF wheezing J45.909 - Unspecified asthma, uncomplicated fluticasone propion-salmeterol 250-50 mcg/dose (Advair Diskus) 1 inh inhalation BID 30 days 60 ea 3RF J45.909 - Unspecified asthma, uncomplicated Patient Instructions: Goal: Control asthma Barriers: Work environment
[2024-09-20 10:45] VITALS: BP 130/70; PULSE 101; TEMP 36.2; O2SAT 96; BMI 37.1
--- OUTSIDE RECORDS SUMMARY | 2024-09-20 12:18 | XMS_ITS | Clinical Summary ---
Author Organization [facility] Address [address] [place] [address] Phone Care Team Providers Care Dba Manager Name Role Phone Physician, Pcp Unknown Primary [...] patient's age to complete this topic Insurance [facility] Care Teams Dba Manager Relationship Specialty Start Date End Date Physician, Pcp Unknown PCP - General 04/26/24
== END 2024-09-20 11:59 | disposition home or self-care (01) ==
LOC: HO.HMCH 10:41
PROVIDERS: PCP Physician Assistant; Visit Provider Physician Assistant
DX: Z00.00 Encounter for general adult medical examination without abnormal findings (principal); G47.33 Obstructive sleep apnea (adult) (pediatric); J45.40 Moderate persistent asthma, uncomplicated; E78.2 Mixed hyperlipidemia; M50.022 Cervical disc disorder at C5-C6 level with myelopathy

== ENCOUNTER → 2024-09-20 10:40 | Outpatient (BNVA) | payer OTHER, SELFPAY | PROVIDERS: PCP Physician Assistant; Visit Provider Physician Assistant | DX: Z00.00 Encounter for general adult medical examination without abnormal findings (principal); J45.40 Moderate persistent asthma, uncomplicated; G47.33 Obstructive sleep apnea (adult) (pediatric); E78.2 Mixed hyperlipidemia; M50.022 Cervical disc disorder at C5-C6 level with myelopathy; Z23 Encounter for immunization | CPT/HCPCS: 90471; 90715 ==

== ENCOUNTER 2024-11-22 13:26 | Outpatient (REF) | payer OTHER, SELFPAY ==
--- NOTE | ~2024-11-22 | XR_ITS ---
EXAMINATION: XR CHEST 2 VIEWS HISTORY: R05.9 - Cough, unspecified COMPARISON: Comparison is made with the prior examination dated 04/12/2024. FINDINGS: PA and lateral views of the chest are submitted. The lungs are expanded and clear. There is no pleural effusion, pneumothorax, or pulmonary vascular congestion. The heart is normal in size. The patient is status post internal fixation of the left clavicle. XR/XR chest 2V IMPRESSION: No acute cardiopulmonary abnormality. Electronically signed by: Sloan Varner MD 11/22/2024 03:41 PM EDT
== END 2024-11-22 13:27 | disposition home or self-care (01) ==
LOC: HO.XRAY 13:26
PROVIDERS: PCP Physician Assistant; Visit Provider Nurse Practitioner Family
DX: J45.40 Moderate persistent asthma, uncomplicated (principal); R05.8 Other specified cough; R40.0 Somnolence; R53.83 Other fatigue; Z91.09 Other allergy status, other than to drugs and biological substances; Z79.899 Other long term (current) drug therapy
CPT/HCPCS: 71046

== ENCOUNTER 2024-11-22 13:26 | Outpatient (AMB) | payer OTHER, SELFPAY ==
[2024-11-22 13:32] VITALS: BP 102/58; PULSE 86; O2SAT 96; BMI 38.2
--- NOTE | 2024-11-22 13:32 | MHC.OFFVIS ---
Vital Signs 11/22/24 13:32 Height 5 ft 2 in Weight 209 lb BMI 38.2 BP 102/58 L Blood Pressure Location Rt brachial Position Sitting Pulse 86 Pulse Source Pulse Oximeter Pulse Oximetry (%) 96 Oxygen Delivery Method Room Air Intake Visit Reasons: ODILIA/Asthma Allergies Sulfa (Sulfonamide Antibiotics) Adverse Reaction (Verified 11/22/24 13:34) Stomach Upset HPI HPI ODILIA/Asthma: Details: Lurdes is a pleasant 59 year old female, never smoker, with underlying asthma, GERD, ODILIA and HLD. She was referred by PCP for pulmonary evaluation. She moved here from [place] one year ago and presents to establish pulmonary care. She was diagnosed with asthma as an adult, never requiring intubation/hospitalizations. Recent PFT revealed no obstructive nor restrictive ventilatory defects identified. No significant response to bronchodilators noted. Normal lung volumes except for decrease in the expiratory reserve volume secondary to an elevated BMI. The diffusing capacity is high normal. She reports suboptimal control on Wixela 250 mcg, using 2 inhalations BID and has been using albuterol MDI/neb more frequently for dyspnea, wheezing and dry cough. She was recently started montelukast with notable improvements in post nasal drip. Endorses seasonal allergies and has a cat as well as horse at home, no recent allergy testing. She describes what sounds like post nasal drip inducing vomiting at night as when she does not use montelukast. She was previously under the care of GI in [place] for reflux and reports symptoms are moderately controlled on Omeprazole. She also notes h/o ODILIA, unknown severity, previously on CPAP therapy however unable to tolerate due to reflux, emesis and cough. She continues with daytime fatigue, nonrestorative sleep and frequent nighttime awakenings. [facility] Medical History GERD (gastroesophageal reflux disease) Motion sickness Vertigo Diaphragmatic hernia without obstruction or gangrene Hyperlipidemia Benign paroxysmal vertigo Asthma Surgical History S/P ACL reconstruction S/P rotator cuff repair Hx laparoscopic cholecystectomy Family History (Updated 09/20/24 @ 11:17 by Isaiah Guardado PA-C) Maternal Grandmother Type II diabetes mellitus Mother Stroke (cerebrum) Brainstem hemorrhage Afib Father Prostate cancer Sister Breast cancer Social History Housing: Apartment Alcohol intake: current Alcohol intake frequency: holidays/special occasions only Alcohol type: beer Patient Tobacco Use Status: Never used Tobacco e-Cigarette/Vaping Use: Never Used Second Hand Smoke Exposure: No service: No Current occupational status: employed Current occupation: [employer] Cognitive needs: No Hearing needs: No Vision needs: Yes Review of Systems Const Denies chills, Denies excessive sweating, Denies fever(s), Denies headache(s) and Denies night sweats Eyes Denies dry eyes, Denies irritation and Denies itchy eyes ENT Reports Normal hearing present, Denies headache(s), Denies nasal congestion, Denies nasal discharge and Denies sore throat Card Denies chest pain, Denies chest pain at rest, Denies chest pain with activity, Denies claudication, Denies leg edema, Denies orthopnea and Denies paroxysmal nocturnal dyspnea Resp Denies chest congestion, Denies excessive phlegm production, Denies pain on inspiration, Denies pain with cough and Denies stridor Musc Denies myalgias Neuro Reports Normal hearing present and Denies headache(s) Endo Denies excessive sweating Ajay/Lymph Denies lymphadenopathy Aller/Immun Denies itchy eyes and Denies seasonal rhinorrhea Physical Exam Vital Signs: Last Vital Signs Pulse 86 11/22/24 13:32 BP 102/58 L 11/22/24 13:32 Pulse Ox 96 11/22/24 13:32 Oxygen Delivery Method Room Air 11/22/24 13:32 BMI result Body Mass Index 38.2 Const General: cooperative, healthy appearing, comfortable, no acute distress, well developed and alert Nutritional Appearance: obese Orientation/consciousness: patient oriented x3 Limitations: no limitations HEENT Head: Yes normal to inspection, Yes normocephalic and Yes atraumatic Ears: hearing grossly normal bilaterally and external ears normal Eyes General: appearance normal, both eyes and all related structures Eyelids: Yes eyelids normal Sclerae: sclerae normal EOM: EOMs intact bilaterally Neck Neck: Yes normal visual inspection and Yes no lymphadenopathy Lymphatic: no lymphadenopathy noted Chest Chest palpation & inspection: normal inspection of the chest Resp Effort & Inspection: normal respiratory effort, able to speak in complete sentences, no audible wheezes, no cough, no stridor, not tachypneic, no tripod positioning and no use of accessory muscles Auscultation: diminished lung sounds Cardio Jugular venous distension: no JVD Rate: regular rate Rhythm: regular rhythm Skin Other: warm, dry General skin exam: no rashes or lesions noted Neuro General: patient oriented x3 Cranial nerves: Yes Normal hearing present Cognition (Neuro): normal cognition Gait exam (Neuro): Normal gait present Extrem General: Yes normal to inspection, Yes capillary refill normal, Yes no clubbing, cyanosis or edema and Yes no pedal edema Psych Appearance: grossly normal and well kempt Speech and movement: Normal speech and movement present and Clear speech present Affect: normal affect Attitude: cooperative Thought process: Normal thought process present Thought content: Normal thought content present Insight: Good insight present (Psych) Judgement: Good judgement present (Psych) Assessment & Plan Assessment & Plan (1) Asthma: Code(s): J45.909 - Unspecified asthma, uncomplicated Category: Medical Qualifiers: Asthma severity: moderate Asthma persistence: persistent Asthma complication type: uncomplicated Qualified Code(s): J45.40 - Moderate persistent asthma, uncomplicated (2) Cough: Code(s): R05.9 - Cough, unspecified Category: Medical (3) Daytime somnolence: Code(s): R40.0 - Somnolence Category: Medical (4) Environmental allergies: Code(s): Z91.09 - Other allergy status, other than to drugs and biological substances Category: Medical Plan Lurdes presents for pulmonary evaluation for worsening asthma control. Will send increased dose of Wixela to 500-50 mcg and is aware to call if symptoms do not improve. Will send for RAST to assess for an allergic component. Advised continuation of Singulair. Patient also with chronic cough will send for CXR to assess for any underlying parenchymal condition. Patient continues with symptoms suggestive of ODILIA, previously on CPAP, will send for home sleep study. All questions were answered and patient is in agreement of plan. Will follow up in 6-8 weeks or sooner if needed. Orders: Orders Immunoglobulin E Today Z91.09 - Other allergy status, other than to drugs and biological substances Complete Blood Count Auto Diff Today Z91.09 - Other allergy status, other than to drugs and biological substances Resp Allergy Profile Region I Today Z91.09 - Other allergy status, other than to drugs and biological substances XR chest 2V Today R05.9 - Cough, unspecified Medications: New fluticasone propion-salmeterol 500-50 mcg/dose (Wixela Inhub) 1 inh inhalation Q12H 60 ea 3RF Refilled montelukast 10 mg PO DAILY 30 tabs 1RF 30 days J45.909 - Unspecified asthma, uncomplicated Coding Level of Care Code New Pt Level 4 (25116) Diagnoses Moderate persistent asthma without complication J45.40 Asthma severity: moderate Asthma persistence: persistent Asthma complication type: uncomplicated Cough R05.9 Daytime somnolence R40.0 Environmental allergies Z91.09
--- OUTSIDE RECORDS SUMMARY | 2024-11-22 14:05 | XMS_ITS | Clinical Summary ---
Author Organization [facility] Address [address] [place] [address] Phone Care Team Providers Care Zone Supervisor Firearms Name Role Phone Physician, Pcp Unknown Primary [...] 88 04/25/2024 11:39 PM EST Temperature 36.4 C (97.5 F) 04/25/2024 11:39 PM EST Respiratory Rate 18 04/25/2024 11:39 PM EST [...] Vaccine ( - 2023-2 5 season) 2023 Depression Screening 04/20/2024 Colorectal Cancer Screening: Colonoscopy 04/26/2024 HIV Screening 04/26/2024 Hepatitis C Screening 04/26/2024 Social Influencers of Health Screening 04/26/2024 Influenza Vaccine (#1) 2024 HIB Vaccines Aged Out No longer [...] patient's age to complete this topic Insurance [facility] Care Teams Zone Supervisor Firearms Relationship Specialty Start Date End Date Physician, Pcp Unknown PCP - General 04/26/24
== END 2024-11-22 14:08 | disposition home or self-care (01) ==
LOC: HO.HPSW 13:27
PROVIDERS: PCP Physician Assistant; Referring Provider Physician Assistant; Visit Provider Nurse Practitioner Family
DX: J45.40 Moderate persistent asthma, uncomplicated (principal); R05.9 Cough, unspecified; R40.0 Somnolence; Z91.09 Other allergy status, other than to drugs and biological substances
CPT/HCPCS: 99204

== ENCOUNTER 2024-11-22 14:21 | Outpatient (REF) | payer OTHER, SELFPAY ==
[2024-11-22 18:19] LABS: MANUAL DIFF FLAG NO
[2024-11-22 18:27] LABS: Hematocrit 36.0 % (37.0-47.0); Hemoglobin 10.9 g/dl (12.0-16.0); Imm Gran Abs Auto 0.02 X10*3/uL (0.00-0.03); Imm Gran Pct Auto 0.4 % (0.0-0.4); Lymphocytes Absolute Auto 1.4 X10*3/uL (1.2-4.9); Mean Corpuscular HGB Conc 30.3 g/dl (31.0-35.0); Mean Corpuscular Hemoglobin 22.7 pg (27.0-33.0); Mean Corpuscular Volume 74.8 fL (80.0-98.0); NRBC Abs Auto 0.000 X10*3/uL (0.0-0.012); NRBC Pct Auto 0.0 /100WBC (0.0-0.2); Platelet Count 245 X10*3/uL (160-400); Red Blood Count 4.81 X10*6/uL (4.20-5.50); White Blood Count 5.5 X10*3/uL (4.8-10.8)
[2024-11-24 17:19] LABS: Class Alternaria alternata 0; Class Aspergillus fumigatus 0; Class Bermuda Grass 0; Class Birch 0/1; Class Cat Dander 0; Class Cladosporium herbarum 0; Class Cockroach 0/1; Class Common Ragweed 1; Class Cottonwood 0/1; Class Derm. pterony 3; Class Dermatophagoides farinae 3; Class Dog Dander 0/1; Class Elm 0/1; Class Maple Box Elder 0; Class Mountain Cedar 0/1; Class Mouse Urine Protein 0; Class Mugwort 0; Class Oak 0; Class Penicillium crysogenum 0; Class Rough Pigweed 0; Class Sheep Sorrel 0; Class Sycamore 0/1; Class Timothy Grass 0; Class Walnut Tree 0/1; Class White Ash 0/1; Class White Mulberry 0; D002 - IgE D farinae 8.17 kU/L; E001 - IgE Cat Dander <0.10 kU/L; E005 - IgE Dog Dander 0.13 kU/L; G006 - IgE Timothy Grass <0.10 kU/L; I006-IgE Cockroach, German 0.13 kU/L; M002 - IgE Cladosporium herbar <0.10 kU/L; M003 - IgE Aspergillus fumigat <0.10 kU/L; M006 - IgE Alternaria alternat <0.10 kU/L; T001 IgE Maple/Box Elder <0.10 kU/L; T006 - IgE Cedar, Mountain 0.13 kU/L; T007 - IgE Oak, White <0.10 kU/L; T008 IgE Elm, American 0.21 kU/L; T010 - IgE Walnut 0.12 kU/L; T011 - IgE Maple Leaf Sycamore 0.15 kU/L; T014 - IgE Cottonwood 0.20 kU/L; T015 - IgE Ash, White 0.14 kU/L; T070 - IgE White Mulberry <0.10 kU/L; W001 - IgE Ragweed, Short 0.38 kU/L; W006 - IgE Mugwort <0.10 kU/L; W014 IgE Pigweed, Common <0.10 kU/L; W018 IgE Sheep Sorrel <0.10 kU/L
== END 2024-11-22 14:22 | disposition home or self-care (01) ==
LOC: HO.WFDLDS 14:21
PROVIDERS: Referring Provider Physician Assistant; Visit Provider Nurse Practitioner Family
DX: J45.909 Unspecified asthma, uncomplicated (principal); R05.9 Cough, unspecified; Z91.09 Other allergy status, other than to drugs and biological substances
CPT/HCPCS: 36415; 82785; 85025; 86003

== ENCOUNTER → 2024-11-22 15:25 | Outpatient (BNV) | payer OTHER, SELFPAY | PROVIDERS: PCP Physician Assistant; Visit Provider Radiology Diagnostic Radiology | DX: R05.9 Cough, unspecified (principal) | CPT/HCPCS: 71046 ==

== ENCOUNTER 2024-12-08 09:51 | Outpatient (REF) | payer OTHER, SELFPAY ==
[2024-12-09 10:59] LABS: Bacterial Vaginosis PCR NEGATIVE (Negative); Candida Group PCR NOT DETECTED (Not Detect); Candida glab krusei PCR NOT DETECTED (Not Detect); Trichomonas vaginalis PCR NOT DETECTED (Not Detect)
== END 2024-12-08 09:52 | disposition home or self-care (01) ==
LOC: HO.LAB 09:51
PROVIDERS: PCP Physician Assistant; Visit Provider Advanced Practice Midwife
DX: Z01.419 Encounter for gynecological examination (general) (routine) without abnormal findings (principal); N89.8 Other specified noninflammatory disorders of vagina; R21 Rash and other nonspecific skin eruption; Z80.3 Family history of malignant neoplasm of breast
CPT/HCPCS: 81515

== ENCOUNTER 2024-12-08 09:51 | Outpatient (AMB) | payer OTHER, SELFPAY ==
[2024-12-08 09:58] VITALS: BP 124/76; BMI 38.0
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
--- OUTSIDE RECORDS SUMMARY | 2024-12-08 11:11 | XMS_ITS | Clinical Summary ---
Author Organization [facility] Address [address] [place] [address] Phone Care Team Providers Care Youth Agent Name Role Phone Physician, Pcp Unknown Primary [...] patient's age to complete this topic Insurance [facility] Care Teams Youth Agent Relationship Specialty Start Date End Date Physician, Pcp Unknown PCP - General 04/26/24
== END 2024-12-08 10:39 | disposition home or self-care (01) ==
LOC: HO.HWS 09:51
PROVIDERS: PCP Physician Assistant; Visit Provider Advanced Practice Midwife
DX: Z01.419 Encounter for gynecological examination (general) (routine) without abnormal findings (principal); N89.8 Other specified noninflammatory disorders of vagina; Z80.3 Family history of malignant neoplasm of breast
CPT/HCPCS: 99386; 99459

== ENCOUNTER 2024-12-08 10:28 | Outpatient (REF) | payer OTHER, SELFPAY | END 2024-12-08 10:29 | disposition home or self-care (01) | LOC: HO.LNP 10:28 | PROVIDERS: Visit Provider Advanced Practice Midwife | DX: Z01.419 Encounter for gynecological examination (general) (routine) without abnormal findings (principal); Z80.3 Family history of malignant neoplasm of breast; Z11.51 Encounter for screening for human papillomavirus (HPV) | CPT/HCPCS: 87626; 88175 ==

== ENCOUNTER 2025-01-16 14:21 | Outpatient (AMB) | payer OTHER, SELFPAY ==
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
[2025-01-16 14:41] VITALS: BP 118/56; PULSE 84; BMI 37.7
--- OUTSIDE RECORDS SUMMARY | 2025-01-16 16:11 | XMS_ITS | Clinical Summary ---
Author Organization [facility] Address [address] [place] [address] Phone Care Team Providers Care Payment Specialist Name Role Phone Physician, Pcp Unknown Primary [...] 2017 Zoster Vaccines (1 of 2) 2017 Depression Screening 04/20/2024 Colorectal Cancer Screening: Colonoscopy 04/26/2024 HIV Screening 04/26/2024 Hepatitis C Screening 04/26/2024 Social Influencers of Health Screening 04/26/2024 COVID-19 Vaccine ( - 2023-2 5 season) 2024 Influenza Vaccine (#1) 2024 HIB Vaccines Aged [...] this topic Insurance [facility] Care Teams Payment Specialist Relationship Specialty Start Date End Date Physician, Pcp Unknown PCP - General 04/26/24
== END 2025-01-16 14:49 | disposition home or self-care (01) ==
LOC: HO.HGS 14:22
PROVIDERS: PCP Physician Assistant; Visit Provider Surgery
DX: Z12.31 Encounter for screening mammogram for malignant neoplasm of breast (principal); Z80.3 Family history of malignant neoplasm of breast
CPT/HCPCS: 99204

== ENCOUNTER 2025-01-19 10:38 | Outpatient (AMB) | payer OTHER, SELFPAY ==
--- NOTE | 2025-01-19 10:42 | MHC.PC.OV ---
Vital Signs 01/19/25 10:44 Height 5 ft 2 in Weight 207 lb BMI 37.9 BP 110/70 Blood Pressure Location Lt brachial Position Sitting Pulse 77 Pulse Source Pulse Oximeter Temp 97.3 F Temp Source Temporal Artery Scan Pulse Oximetry (%) 98 Oxygen Delivery Method Room Air Intake Visit Reasons: f/u Asthma Intake Note: Patient is here to follow up on Asthma. Medical Staff Services Coordinator Required: No Flatwork Catcher: Not Required per policy Accompanied by: Self / Same As Patient Allergies Sulfa (Sulfonamide Antibiotics) Adverse Reaction (Verified 01/19/25 10:51) Stomach Upset Medication List - Last Reconciled 01/19/25 by Isaiah Guardado PA-C albuterol sulfate 90 mcg/actuation 2 puffs inhalation Q4H 30 days albuterol sulfate 2.5 mg (3 mL) inhalation Q6H PRN 30 days fluticasone propion-salmeterol 500-50 mcg/dose (Wixela Inhub) 1 inh inhalation Q12H montelukast 10 mg PO DAILY 90 days Tobacco use date assessed: 01/19/25 Dental Screening Dental Screen Date: 07/13/24 HPI f/u Asthma HPI Details Patient is a 59-year-old female here today for a follow-up visit Patient has a past medical history significant for moderate persistent asthma, obesity, cervical spine disease. Concern--> The patient reports vertigo, characterized by dizziness with head movements, persisting despite repositioning maneuvers, suggesting benign paroxysmal positional vertigo. She also reports ear fullness, likely related to Eustachian tube dysfunction, possibly exacerbated by allergies. .. Asthma: Patient has followed up with an established with [facility]. Most recent allergy testing an IgE showing abnormality. She has followed up with pulmonology whom increased her dose of Wixela. She continues on montelukast as well. Pulmonology recommending a sleep apnea test Patient has undergone a pulmonary function test that showed some improvement in her pulmonary function with bronchodilator. She reports had for has not been as effective for recently. She has been using her nebulizer which does seem to help resolve her shortness of breath and wheeze. .., Cervical disc disorder: Recent CT of neck showing severe cervical disc disorder as C5-C6, she has followed up with neurosurgery whom does not believe she needs a surgical procedure at this time. .. Hyperlipidemia: Patient does have a history of hyperlipidemia Laboratory Tests 04/12/24 08/24/24 11/22/24 10:53 08:46 14:26 RBC 4.95 4.80 Hgb 12.0 11.2 L 10.9 L Hct 36.0 L MCV 74.8 L Creatinine 0.82 0.77 Fasting Glucose 106 H ALT 32 H Cholesterol 178 LDL Cholesterol, C alc 111 H D. farinae Allrgen IgE D. pteronyssinus I gE Cl Dog Dander Allerge n IgE 11/22/24 15:54 RBC Hgb Hct MCV Creatinine Fasting Glucose ALT Cholesterol LDL Cholesterol, C alc D. farinae Allrgen IgE 8.17 H D. pteronyssinus I gE Cl 11.10 H Dog Dander Allerge n 0.13 H IgE 270 H PFS Medical History (Updated 01/19/25 @ 11:05 by Isaiah Guardado PA-C) GERD (gastroesophageal reflux disease) Motion sickness Vertigo Diaphragmatic hernia without obstruction or gangrene Hyperlipidemia Benign paroxysmal vertigo Asthma Surgical History S/P ACL reconstruction S/P rotator cuff repair Hx laparoscopic cholecystectomy Family History Maternal Grandmother Type II diabetes mellitus Mother Stroke (cerebrum) Brainstem hemorrhage Afib Father Prostate cancer Sister Breast cancer, Onset Age: 40 Brother Jaw cancer Maternal Aunt Pancreatic cancer Maternal Uncle Cancer of unknown origin Social History Housing: Apartment Alcohol intake: current Alcohol intake frequency: holidays/special occasions only Alcohol type: beer Patient Tobacco Use Status: Never used Tobacco e-Cigarette/Vaping Use: Never Used Second Hand Smoke Exposure: No service: No Current occupational status: employed Current occupation: [employer] Cognitive needs: No Hearing needs: No Vision needs: Yes Female Reproductive History Menstrual Age of Menarche: 12 Questionnaire Thrive Questionnaire Date Thrive assessed: 07/13/24 I am a: Patient What is your living situation today?: I have a steady place to live Within the past 12 months, did the food you bought not last and you didn't have the money to get more?: Never true Within the past 12 months, did you worry whether your food would run out before you got money to buy more?: Never true Do you have trouble paying for medicines?: No Do you have trouble getting transportation to medical appointments?: No Do you have trouble paying your heating and electricity bill?: No Do you have trouble taking care of your child, family member or friend?: No Do you have trouble with day-to-day activities such as bathing, preparing meals, shopping, managing finances, etc.?: No Are you currently unemployed and looking for a job?: No Are you interested in more education?: No Please select the resources that you would like help with: None THRIVE Score: 0 LETICIA-7 AMB Questionnaire LETICIA-7 Date LETICIA - 7 assessed: 07/13/24 Source: Developed by Drs. Sloan Brady, Almita Pena, Cali Hua and colleagues, with an educational jennifer from [employer]. Review of Systems Const Denies headache(s) Eyes Denies loss of vision ENT Denies vertigo, Denies dizziness, Denies headache(s) and Denies sore throat Card Denies chest pain, Denies leg edema and Denies lightheadedness Resp Denies cough, Denies hemoptysis and Denies wheezing GI Denies abdominal pain, Denies melena, Denies constipation, Denies diarrhea and Denies vomiting Denies urinary frequency, Denies dysuria and Denies urinary urgency Musc Denies arthralgias, Denies joint swelling, Denies numbness and Denies tingling Neuro Denies Abnormal speech present, Denies behavioral changes, Denies vertigo, Denies dizziness, Denies headache(s), Denies loss of vision, Denies memory loss, Denies numbness and Denies tingling Psych Denies anxiety, Denies behavioral changes, Denies depression, Denies memory loss and Denies panic attacks Ajay/Lymph Denies easy bleeding and Denies easy bruising Aller/Immun Denies wheezing Physical exam (Primary Care) Vital Signs: Last Vital Signs Temp 97.3 F 01/19/25 10:44 Pulse 77 01/19/25 10:44 BP 110/70 01/19/25 10:44 Pulse Ox 98 01/19/25 10:44 Oxygen Delivery Method Room Air 01/19/25 10:44 BMI result Body Mass Index 37.9 Tobacco/Smoking Status: Tobacco use Status Tobacco use date assessed 01/19/25 01/19/25 10:47 Patient Tobacco Use Status Never used Tobacco 01/19/25 10:47 e-Cigarette/Vaping Use Never Used 01/19/25 10:47 Thrive Assessment: Date of Thrive Assessment Date Thrive assessed 07/13/24 01/19/25 10:47 Const General: healthy appearing, no acute distress, alert and awake Nutritional Appearance: well nourished Orientation/consciousness: oriented to person, oriented to place and oriented to time HENMT Other: LEFT EAR: NOTED AIR-FLUID LEVELS AT THE TYMPANIC MEMBRANE, NO OVERT SIGNS OF INFECTION Ears: TM's normal bilaterally General nose exam: Normal nasal mucous membranes and turbinates present Eyes Conjunctivae: conjunctivae normal Sclerae: sclerae normal Pupils: Equal, round and reactive pupils present Neck Neck: Yes no lymphadenopathy and Yes no JVD Thyroid: Thyroid normal Carotids: no bruits Resp Effort & Inspection: normal respiratory effort and not tachypneic Auscultation: no crackles, no rales, no rhonchi and no wheezes Cardio Rate: regular rate Rhythm: regular rhythm Heart sounds: no murmurs and normal S1 and S2 GI Palpation (GI): Soft to palpation, nontender, no hepatomegaly and no splenomegaly Auscultation: normal bowel sounds Skin General skin exam: no rashes or lesions noted and dry skin Neuro General: oriented to person, oriented to place and oriented to time Cranial nerves: Yes Equal, round and reactive pupils present Speech: No Abnormal speech present Gait exam (Neuro): Normal gait present Motor exam (neuro): no tremor noted Extrem Right upper extremity: full ROM Left upper extremity: full ROM Right lower extremity: full ROM; no edema Left lower extremity: full ROM; no edema Psych Mental Status: mental status grossly normal Speech and movement: Normal speech and movement present Affect: normal affect Attitude: cooperative Thought process: Normal thought process present Coding Level of Care Code Est Pt Level 4 (72961) Diagnoses Moderate persistent asthma without complication J45.40 Asthma complication type: uncomplicated Asthma persistence: persistent Asthma severity: moderate ODILIA (obstructive sleep apnea) G47.33 Mixed hyperlipidemia E78.2 Hyperlipidemia type: mixed hyperlipidemia Congestion of left ear H93.8X2 Vertigo R42 Assessment & Plan Assessment & Plan (1) Asthma: Code(s): J45.909 - Unspecified asthma, uncomplicated Category: Medical Qualifiers: Asthma complication type: uncomplicated Asthma persistence: persistent Asthma severity: moderate Qualified Code(s): J45.40 - Moderate persistent asthma, uncomplicated Plan: Patient now on highest dose of Advair and taking montelukast. Patient's asthma seems to be allergy/environmentally mediated. She reports her asthma is a bit better though still has intermittent episodes of exacerbations. Of note does have elevated IgE and environmental allergies. She needs an obstructive sleep apnea test to evaluate for obstructive sleep apnea before she is seen by her manufacturing assembler again. (2) ODILIA (obstructive sleep apnea): Code(s): G47.33 - Obstructive sleep apnea (adult) (pediatric) Category: Medical Plan: Patient has a history of obstructive sleep apnea though has not been using her CPAP machine. (3) Hyperlipidemia: Code(s): E78.5 - Hyperlipidemia, unspecified Category: Medical Qualifiers: Hyperlipidemia type: mixed hyperlipidemia Qualified Code(s): E78.2 - Mixed hyperlipidemia Plan: Patient's most recent lipid panel showing good control over total cholesterol and LDL. At this time her hyperlipidemia his diet managed. Goal LDL is to remain below 130 (4) Congestion of left ear: Code(s): H93.8X2 - Other specified disorders of left ear Category: Medical Plan: Patient does have air-fluid levels in the left ear on physical exam. Likely related to allergies versus weaning to a Eustachian tube dysfunction. Advised on using nasal decongestant for few days supply patient with prednisone taper to help draw fluid from the middle ear (5) Vertigo: Code(s): R42 - Dizziness and giddiness Category: Medical Plan: Patient does have meclizine and has been doing Deedee maneuvers at home though have not been effective. Does have fluid in her left ear thus will try to draw fluid out with prednisone and antihistamines. Orders: Orders Complete Blood Count no Diff Today E78.2 - Mixed hyperlipidemia Lipid Panel Today E78.2 - Mixed hyperlipidemia RT home sleep study Today G47.33 - Obstructive sleep apnea (adult) (pediatric) Comprehensive [place]. Panel Fast Today E78.2 - Mixed hyperlipidemia Medications: New prednisone Take 3 tablets x2 days, 2 tablets x2 days, 1 tablet x2 days 10 mg PO DIRECTED 12 tabs 0RF 6 days H93.8X2 - Other specified disorders of left ear
[2025-01-19 10:44] VITALS: BP 110/70; PULSE 77; TEMP 36.3; O2SAT 98; BMI 37.9
--- OUTSIDE RECORDS SUMMARY | 2025-01-19 12:27 | XMS_ITS | Clinical Summary ---
Author Organization [facility] Address [address] [place] [address] Phone Care Team Providers Care Act Tutor Name Role Phone Physician, Pcp Unknown Primary [...] patient's age to complete this topic Insurance [facility] Care Teams Act Tutor Relationship Specialty Start Date End Date Physician, Pcp Unknown PCP - General 04/26/24
== END 2025-01-19 11:08 | disposition home or self-care (01) ==
LOC: HO.HMCH 10:38
PROVIDERS: PCP Physician Assistant; Visit Provider Physician Assistant
DX: J45.40 Moderate persistent asthma, uncomplicated (principal); G47.33 Obstructive sleep apnea (adult) (pediatric); E78.2 Mixed hyperlipidemia; H93.8X2 Other specified disorders of left ear; R42 Dizziness and giddiness

== ENCOUNTER 2025-02-16 10:39 | Outpatient (AMB) | payer OTHER, SELFPAY ==
[2025-02-16 10:46] VITALS: BP 132/60; PULSE 123; TEMP 36.9; O2SAT 93; BMI 37.4
--- NOTE | 2025-02-16 10:46 | A.OFFPC_ITS ---
Vital Signs 02/16/25 10:46 Height 5 ft 2 in Weight 204 lb 8 oz BMI 37.4 BP 132/60 Blood Pressure Location Lt brachial Position Sitting Pulse 123 H Pulse Source Pulse Oximeter Temp 98.4 F Temp Source Temporal Artery Scan Pulse Oximetry (%) 93 Oxygen Delivery Method Room Air Intake Visit Reasons: Breathing trouble and asthma Allergies Sulfa (Sulfonamide Antibiotics) Adverse Reaction (Verified 02/16/25 10:48) Stomach Upset Tobacco use date assessed: 02/16/25 Dental Screening Dental Screen Date: 02/16/25 Did you have a dental visit in the last 12 months?: No Did you have a dental problem in the last 6 months where you did not have access to dental care?: No Was dental information given to patient?: No HPI HPI Comments History of Present Illness Details Patient is a 59-year-old female with history of ODILIA, moderate persistent asthma, vertigo, and cervical spinal disease who presents today complaints of persistent cough. Regarding her asthma, she follows up with pulmonology. Recent allergy testing from November 2024 showed elevated IgE, consistent with allergic asthma. Currently on Wixela highest dose and montelukast. She was recently seen here in clinic on 01/19/25 when she was given a course of prednisone taper to help with allergies causing ear fullness. Today, patient states over the past 2 weeks she has experienced persistent cough, for which a week ago she went to a walk-in clinic and got tested for influenza and COVID that was negative. She continued to have persistent cough associated with intermittent wheezing, significantly affecting her ability to sleep with nighttime awakenings almost every night and requiring more frequent use of her p.r.n. albuterol inhaler, has been using it more then once daily for the past week. Reports bilateral rib pain due to coughing. Denies phlegm production, fever, chills, headache or sick contacts. [facility] Medical History GERD (gastroesophageal reflux disease) Motion sickness Vertigo Diaphragmatic hernia without obstruction or gangrene Hyperlipidemia Benign paroxysmal vertigo Asthma Surgical History S/P ACL reconstruction S/P rotator cuff repair Hx laparoscopic cholecystectomy Family History Maternal Grandmother Type II diabetes mellitus Mother Stroke (cerebrum) Brainstem hemorrhage Afib Father Prostate cancer Sister Breast cancer, Onset Age: 40 Brother Jaw cancer Maternal Aunt Pancreatic cancer Maternal Uncle Cancer of unknown origin Social History Housing: Apartment Alcohol intake: current Alcohol intake frequency: holidays/special occasions only Alcohol type: beer Patient Tobacco Use Status: Never used Tobacco e-Cigarette/Vaping Use: Never Used Second Hand Smoke Exposure: No service: No Current occupational status: employed Current occupation: [employer] Cognitive needs: No Hearing needs: No Vision needs: Yes Female Reproductive History Menstrual Age of Menarche: 12 Questionnaire PHQ-9 Over the last 2 weeks, how often have you been bothered by any of the following problems? 1. Little interest or pleasure in doing things: not at all 2. Feeling down, depressed, or hopeless: not at all 3. Trouble falling or staying asleep, or sleeping too much: several days 4. Feeling tired or having little energy: several days 5. Poor appetite or overeating: not at all 6. Feeling bad about yourself - or that you are a failure or have let yourself or your family down: not at all 7. Trouble concentrating on things, such as reading the newspaper or watching television: not at all 8. Moving or speaking so slowly that other people could have noticed. Or the opposite - being so fidgety or restless that you have been moving around a lot more than usual: not at all 9. Thoughts that you would be better off or of hurting yourself in some way: not at all Total score: 2 Source: Developed by Drs. Sloan Brady, Almita Pena, Cali Hua and colleagues, with an educational jennifer from [employer]. Thrive Questionnaire Date Thrive assessed: 07/13/24 I am a: Patient What is your living situation today?: I have a steady place to live Within the past 12 months, did the food you bought not last and you didn't have the money to get more?: Never true Within the past 12 months, did you worry whether your food would run out before you got money to buy more?: Never true Do you have trouble paying for medicines?: No Do you have trouble getting transportation to medical appointments?: No Do you have trouble paying your heating and electricity bill?: No Do you have trouble taking care of your child, family member or friend?: No Do you have trouble with day-to-day activities such as bathing, preparing meals, shopping, managing finances, etc.?: No Are you currently unemployed and looking for a job?: No Are you interested in more education?: No Please select the resources that you would like help with: None THRIVE Score: 0 AUDIT C Alcohol Use Questionnaire (AUDIT-C) 1. How often do you have a drink containing alcohol?: Monthly or less 2. How many drinks containing alcohol do you have on a typical day when you are drinking?: 1 or 2 3. How often do you have six or more drinks on one occasion?: Never Total Score: 1 LETICIA-7 AMB Questionnaire LETICIA-7 Date LETICIA - 7 assessed: 07/13/24 Feeling nervous, anxious, or on edge: 1 = Several days Not being able to stop or control worryin = Several days Worrying too much about different things: 1 = Several days Trouble relaxin = Not at all Being so restless that it is hard to sit still: 0 = Not at all Becoming easily annoyed or irritable: 0 = Not at all Feeling afraid as if something awful might happen: 0 = Not at all Total LETICIA-7 score (0-4 normal; 5-9 mild; 10-14 moderate; 15-21 severe): 3 Source: Developed by Drs. Sloan Brady, Almita Pena, Cali Hua and colleagues, with an educational jennifer from [employer]. Review of Systems Narrative As per HPI Physical exam (Primary Care) Vital Signs: Last Vital Signs Temp 98.4 F 02/16/25 10:46 Pulse 123 H 02/16/25 10:46 BP 132/60 02/16/25 10:46 Pulse Ox 93 02/16/25 10:46 Oxygen Delivery Method Room Air 02/16/25 10:46 General: Well-appearing, alert, oriented ?3, in no acute distress. Cardiovascular: Rapid rate, Regular rhythm, S1-S2 appreciated, no murmurs, rubs or gallops. Respiratory: Lungs clear to auscultation bilaterally, no wheezes, rales or rhonchi. Abdomen: Soft, nontender, nondistended. Normoactive bowel sounds. BMI result Body Mass Index 37.4 Tobacco/Smoking Status: Tobacco use Status Tobacco use date assessed 02/16/25 02/16/25 10:50 Patient Tobacco Use Status Never used Tobacco 02/16/25 10:50 e-Cigarette/Vaping Use Never Used 02/16/25 10:50 PHQ-9: PHQ-9 Score PHQ-9: Total score 2 02/16/25 10:50 Thrive Assessment: Date of Thrive Assessment Date Thrive assessed 07/13/24 02/16/25 10:50 Coding Level of Care Code Est Pt Level 4 (50508) Diagnoses Exacerbation of persistent asthma, unspecified asthma severity J45.901 Asthma severity: unspecified severity Asthma persistence: persistent Rib pain R07.81 Assessment & Plan Assessment & Plan (1) Asthma exacerbation: Code(s): J45.901 - Unspecified asthma with (acute) exacerbation Category: Medical Qualifiers: Asthma severity: unspecified severity Asthma persistence: persistent Qualified Code(s): J45.901 - Unspecified asthma with (acute) exacerbation Plan: Patient with a known history of moderate persistent asthma with a component of allergic asthma, with a positive IgE antibody titers in November 2024. Current regimen includes highest dose Wixela and montelukast. Patient presenting today with 2 weeks history of persistent cough with intermittent wheezing, with nighttime awakenings every night and use of albuterol inhaler/nebulizer more than once daily consistent with severe persistent asthma. Patient is not in acute respiratory distress, saturating well on room air and no wheezing on physical exam. Symptoms likely secondary to asthma exacerbation or worsening of underlying chronic asthma. Will give patient a course of prednisone 40 mg daily for 7 days. Patient should return to clinic if no improvement. She will follow up with pulmonology on 02/28 for further evaluation and assessment of possible need for stepping up her medication regimen to include omalizumab given patient's allergies and allergic asthma component. Advised patient that if at anytime she felt shortness of breath, significant wheezing or drop in her oxygen saturation she should present to the emergency department. She has pulse ox at home to monitor her O2 sat. (2) Rib pain: Code(s): R07.81 - Pleurodynia Plan: Patient presenting with bilateral rib pain due to her persistent cough for past 2 weeks. Plan is to give meloxicam 7.5 mg b.i.d. p.r.n. pain. Patient advised to avoid taking other NSAIDs concurrently with meloxicam. Medications: New prednisone 40 mg (2 x 20 mg) PO DAILY 14 tabs 0RF 7 days meloxicam 7.5 mg PO BID PRN 14 tabs 0RF pain
--- OUTSIDE RECORDS SUMMARY | 2025-02-16 13:10 | XMS_ITS | Clinical Summary ---
Author Organization [facility] Address [address] [place] [address] Phone Care Team Providers Care Radiologic Technology Teacher Name Role Phone Physician, Pcp Unknown Primary [...] Last Done Comments Breast Cancer Screening 1967 Colorectal Cancer Screening: Colonoscopy 1967 DTaP,Tdap,and Td Vaccines (1 - Tdap) 1986 Hepatitis B Vaccines (1 of 3 - 19+ 3-dose series) 1986 Cervical Cancer Screening: P ap Smear 1988 Pneumococcal Vaccine: 50+ Ye ars (1 of 1 - PCV) 2017 Zoster Vaccines (1 of 2) 2017 Depression Screening 04/20/2024 HIV Screening 04/26/2024 Hepatitis C Screening 04/26/2024 Social Influencers of Health Screening 04/26/2024 COVID-19 Vaccine (1 - 2023-2 5 season) 2024 Influenza Vaccine (#1) 2024 RSV Immunization Adult Patie nts (1 - 1-dose 75+ series) 2042 HIB Vaccines Aged Out No longer eligi [...] patient's age to complete this topic Insurance [facility] Care Teams Radiologic Technology Teacher Relationship Specialty Start Date End Date Physician, Pcp Unknown PCP - General 04/26/24
== END 2025-02-16 11:22 | disposition home or self-care (01) ==
LOC: HO.HMCH 10:40
PROVIDERS: PCP Physician Assistant; Visit Provider Student in an Organized Health Care Education/Training Program
DX: J45.51 Severe persistent asthma with (acute) exacerbation (principal); R07.81 Pleurodynia

== ENCOUNTER 2025-02-28 09:42 | Outpatient (AMB) | payer OTHER, SELFPAY ==
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
[2025-02-28 09:54] VITALS: BP 119/76; PULSE 94; BMI 36.0
--- OUTSIDE RECORDS SUMMARY | 2025-02-28 10:54 | XMS_ITS | Clinical Summary ---
Author Organization [facility] Address [address] [place] [address] Phone Care Team Providers Care Product Assembler Name Role Phone Physician, Pcp Unknown Primary [...] patient's age to complete this topic Insurance [facility] Care Teams Product Assembler Relationship Specialty Start Date End Date Physician, Pcp Unknown PCP - General 04/26/24
== END 2025-02-28 10:08 | disposition home or self-care (01) ==
LOC: HO.HGS 09:43
PROVIDERS: PCP Physician Assistant; Visit Provider Surgery
DX: Z12.31 Encounter for screening mammogram for malignant neoplasm of breast (principal); Z80.3 Family history of malignant neoplasm of breast
CPT/HCPCS: 99213

== ENCOUNTER 2025-02-28 09:42 | Outpatient (REF) | payer OTHER, SELFPAY ==
[2025-02-28 11:27] LABS: Hematocrit 38.9 % (37.0-47.0); Hemoglobin 11.5 g/dl (12.0-16.0); Mean Corpuscular HGB Conc 29.6 g/dl (31.0-35.0); Mean Corpuscular Hemoglobin 22.2 pg (27.0-33.0); Mean Corpuscular Volume 75.2 fL (80.0-98.0); NRBC Abs Auto 0.000 X10*3/uL (0.0-0.012); NRBC Pct Auto 0.0 /100WBC (0.0-0.2); Platelet Count 346 X10*3/uL (160-400); Red Blood Count 5.17 X10*6/uL (4.20-5.50); White Blood Count 7.5 X10*3/uL (4.8-10.8)
[2025-02-28 13:05] LABS: Alanine Aminotransferase 37 U/L (0-31); Albumin Level 4.3 g/dL (3.5-5.0); Alkaline Phosphatase 100 U/L (39-117); Anion Gap 12 (12-20); Aspartate Amino Transferase 25 U/L (5-31); Blood Urea Nitrogen 19 mg/dL (9-16); Calcium 9.8 mg/dL (8.4-10.2); Carbon Dioxide 28 mmol/L (22-29); Chloride 106 mmol/L (96-108); Cholesterol 204 mg/dL (<200); Estimated Glomerular Filt Rate > 60; HDL Cholesterol 55 mg/dL (>40); Potassium 4.8 mmol/L (3.3-5.1); Sodium 141 mmol/L (135-145); Total Protein 7.4 g/dL (6.5-8.0); Triglycerides 126 mg/dL (<150)
== END 2025-02-28 09:43 | disposition home or self-care (01) ==
LOC: HO.LAB 09:42
PROVIDERS: Absent Provider Physician Assistant; PCP Physician Assistant; Visit Provider Surgery
DX: J45.40 Moderate persistent asthma, uncomplicated (principal); R40.0 Somnolence; Z91.09 Other allergy status, other than to drugs and biological substances; E78.2 Mixed hyperlipidemia; Z80.3 Family history of malignant neoplasm of breast; Z12.31 Encounter for screening mammogram for malignant neoplasm of breast
CPT/HCPCS: 36415; 80053; 80061; 85027

== ENCOUNTER 2025-02-28 13:51 | Outpatient (AMB) | payer OTHER, SELFPAY ==
[2025-02-28 13:54] VITALS: BP 148/60; PULSE 74; O2SAT 95; BMI 37.7
--- NOTE | 2025-02-28 13:54 | MHC.OFFVIS ---
Vital Signs 02/28/25 13:54 Height 5 ft 2 in Weight 206 lb 6 oz BMI 37.7 BP 148/60 H Blood Pressure Location Rt brachial Position Sitting Pulse 74 Pulse Source Pulse Oximeter Pulse Oximetry (%) 95 Oxygen Delivery Method Room Air Intake Visit Reasons: Asthma/Sleep study follow up Allergies Sulfa (Sulfonamide Antibiotics) Adverse Reaction (Verified 02/28/25 13:56) Stomach Upset HPI HPI Asthma/Sleep study follow up: Details: Lurdes is a pleasant 59 year old female, never smoker, with underlying asthma, GERD, ODILIA and HLD. She was initially referred by PCP for pulmonary evaluation. She moved here from [place] one year ago and presents to establish pulmonary care. She was diagnosed with asthma as an adult, never requiring intubation/hospitalizations. Recent PFT revealed no obstructive nor restrictive ventilatory defects identified. No significant response to bronchodilators noted. Normal lung volumes except for decrease in the expiratory reserve volume secondary to an elevated BMI. The diffusing capacity is high normal. At the last visit she reported suboptimal control on Wixela 250 mcg and was increased to 500 mcg, in addition to Singulair. Unfortunately patient continues with poor control of asthma, requiring prednisone for exacerbation last month. She did admit to running out of Claritin and will restart. The patient reports that her asthma symptoms are exacerbated by poor air quality and allergens in the [facility] area. She has a history of severe coughing spells leading to fainting, particularly noted around [place] last year. She experiences numbness in her fingers and chills, which she associates with low oxygen levels, although her oxygen saturation was not critically low. Today she presents to review RAST testing. Of note, patient with history of ODILIA, unknown severity, continues with daytime fatigue, non restorative sleep and frequent nighttime awakenings. At the last visit she was sent for home sleep study however was never contacted, will have staff look into this. [facility] Medical History GERD (gastroesophageal reflux disease) Motion sickness Vertigo Diaphragmatic hernia without obstruction or gangrene Hyperlipidemia Benign paroxysmal vertigo Asthma Surgical History S/P ACL reconstruction S/P rotator cuff repair Hx laparoscopic cholecystectomy Family History Maternal Grandmother Type II diabetes mellitus Mother Stroke (cerebrum) Brainstem hemorrhage Afib Father Prostate cancer Sister Breast cancer, Onset Age: 40 Brother Jaw cancer Maternal Aunt Pancreatic cancer Maternal Uncle Cancer of unknown origin Social History Housing: Apartment Alcohol intake: current Alcohol intake frequency: holidays/special occasions only Alcohol type: beer Patient Tobacco Use Status: Never used Tobacco e-Cigarette/Vaping Use: Never Used Second Hand Smoke Exposure: No service: No Current occupational status: employed Current occupation: [employer] Cognitive needs: No Hearing needs: No Vision needs: Yes Female Reproductive History Menstrual Age of Menarche: 12 Review of Systems Const Denies chills, Denies excessive sweating, Denies fever(s), Denies headache(s) and Denies night sweats Eyes Denies dry eyes and Denies irritation ENT Reports Normal hearing present, Denies headache(s) and Denies sore throat Card Denies chest pain, Denies chest pain at rest, Denies chest pain with activity, Denies claudication, Denies leg edema, Denies orthopnea and Denies paroxysmal nocturnal dyspnea Resp Denies chest congestion, Denies excessive phlegm production, Denies pain on inspiration, Denies pain with cough and Denies stridor Musc Denies myalgias Neuro Reports Normal hearing present and Denies headache(s) Endo Denies excessive sweating Ajay/Lymph Denies lymphadenopathy Physical Exam Vital Signs: Last Vital Signs Pulse 74 02/28/25 13:54 BP 148/60 H 02/28/25 13:54 Pulse Ox 95 02/28/25 13:54 Oxygen Delivery Method Room Air 02/28/25 13:54 BMI result Body Mass Index 37.7 Const General: cooperative, healthy appearing, comfortable, no acute distress, well developed and alert Nutritional Appearance: obese Orientation/consciousness: patient oriented x3 Limitations: no limitations HEENT Head: Yes normal to inspection, Yes normocephalic and Yes atraumatic Ears: hearing grossly normal bilaterally and external ears normal Eyes General: appearance normal, both eyes and all related structures Eyelids: Yes eyelids normal Sclerae: sclerae normal EOM: EOMs intact bilaterally Neck Neck: Yes normal visual inspection and Yes no lymphadenopathy Lymphatic: no lymphadenopathy noted Chest Chest palpation & inspection: normal inspection of the chest Resp Effort & Inspection: normal respiratory effort, able to speak in complete sentences, no audible wheezes, no cough, no stridor, not tachypneic, no tripod positioning and no use of accessory muscles Auscultation: diminished lung sounds Cardio Jugular venous distension: no JVD Rate: regular rate Rhythm: regular rhythm Skin Other: warm, dry General skin exam: no rashes or lesions noted Neuro General: patient oriented x3 Cranial nerves: Yes Normal hearing present Cognition (Neuro): normal cognition Gait exam (Neuro): Normal gait present Extrem General: Yes normal to inspection, Yes capillary refill normal, Yes no clubbing, cyanosis or edema and Yes no pedal edema Psych Appearance: grossly normal and well kempt Speech and movement: Normal speech and movement present and Clear speech present Affect: normal affect Attitude: cooperative Thought process: Normal thought process present Thought content: Normal thought content present Insight: Good insight present (Psych) Judgement: Good judgement present (Psych) Results Reviewed Results Reviewed: Labs: Elevated IgE level at 270, eosinophil count at 6%. - Allergy Testing: Positive for dust, various trees, ragweed, dog, and cockroach; negative for mold. Assessment & Plan Assessment & Plan (1) Asthma: Code(s): J45.909 - Unspecified asthma, uncomplicated Category: Medical Qualifiers: Asthma severity: moderate Asthma persistence: persistent Asthma complication type: uncomplicated Qualified Code(s): J45.40 - Moderate persistent asthma, uncomplicated (2) Cough: Code(s): R05.9 - Cough, unspecified Category: Medical (3) Daytime somnolence: Code(s): R40.0 - Somnolence Category: Medical (4) Environmental allergies: Code(s): Z91.09 - Other allergy status, other than to drugs and biological substances Category: Medical Plan Discussed with the patient the plan to initiate Xolair injections, 300 mg q.2 weeks, to manage her asthma, explaining the mechanism of action and the need for hospital administration due to potential allergic reactions. We reviewed the importance of continuing current medications, including Wixela and Singulair, and using albuterol as needed. Will also send EpiPen. The patient is advised to monitor symptoms and use albuterol as needed. The patient is advised to avoid known allergens and continue using allergy medications such as Claritin. Environmental control measures, including using dust mite covers and maintaining low humidity, are recommended to reduce exposure to allergens. All questions were answered and patient is in agreement of plan. Will follow up in 10-12 weeks or sooner if needed. Medications: New epinephrine (EpiPen 2-Tang) for 2 doses 0.3 mg (0.3 mL) IM Q10M PRN 2 ea 0RF anaphylaxis Coding Level of Care Code Est Pt Level 4 (30197) Complex EM visit Add On G2211 Diagnoses Moderate persistent asthma without complication J45.40 Asthma severity: moderate Asthma persistence: persistent Asthma complication type: uncomplicated Cough R05.9 Daytime somnolence R40.0 Environmental allergies Z91.09
== END 2025-02-28 14:26 | disposition home or self-care (01) ==
LOC: HO.HPSW 13:51
PROVIDERS: PCP Physician Assistant; Visit Provider Nurse Practitioner Family
DX: J45.40 Moderate persistent asthma, uncomplicated (principal); R05.9 Cough, unspecified; R40.0 Somnolence; Z91.09 Other allergy status, other than to drugs and biological substances
CPT/HCPCS: 99214

== ENCOUNTER 2025-03-31 14:26 | Outpatient (AMB) | payer OTHER, SELFPAY ==
[2025-03-31 14:30] VITALS: BP 122/84; PULSE 90; O2SAT 97; BMI 36.8
--- NOTE | 2025-03-31 14:30 | A.OFFPC_ITS ---
Vital Signs 03/31/25 14:30 Height 5 ft 2 in Weight 201 lb BMI 36.8 BP 122/84 Blood Pressure Location Lt brachial Position Sitting Pulse 90 Pulse Source Pulse Oximeter Pulse Oximetry (%) 97 Oxygen Delivery Method Room Air Intake Visit Reasons: cold and sinus infection Branch Lead Required: No Accompanied by: Self / Same As Patient Allergies Sulfa (Sulfonamide Antibiotics) Adverse Reaction (Verified 03/31/25 14:53) Stomach Upset Medication List - Last Reconciled 03/31/25 by Jerry Rojas MD albuterol sulfate 90 mcg/actuation 2 puffs inhalation Q4H 30 days albuterol sulfate 2.5 mg (3 mL) inhalation Q6H PRN 30 days EpiPen 2-Tang (epinephrine) 0.3 mg (0.3 mL) IM Q10M PRN NS fluticasone propion-salmeterol 500-50 mcg/dose (Wixela Inhub) 1 inh inhalation Q12H meloxicam 7.5 mg PO BID PRN montelukast 10 mg PO DAILY 90 days omeprazole 40 mg PO DAILY Tobacco use date assessed: 03/31/25 Dental Screening Dental Screen Date: 03/31/25 Did you have a dental visit in the last 12 months?: No Did you have a dental problem in the last 6 months where you did not have access to dental care?: No Was dental information given to patient?: No HPI cold and sinus infection HPI Details - The patient is a 60-year-old female pr esenting with a persistent illness. - The patient reports being sick last We and , about 8-9 days ago, with symptoms dragging on. - She attended a clinic where she tested negative for COVID-19, influenza A and B, and streptococcus. - She was not prescribed any medication at that time. - Her initial symptoms included a sore t hroat, which has since resolved, and a fever on Thursday. - Current symptoms include a cough that is worse at night, and significant green discharge and phlegm. - The patient has a history of asthma an d enlarged tonsils. - She reports having her inhalers and randall s been using them more frequently lately to help relieve her chest/respiratory symptoms - The patient is allergic to sulfa drugs . - She has a follow-up appointment schedu led for April 25, 2025 with her PCP [facility] Medical History GERD (gastroesophageal reflux disease) Motion sickness Vertigo Diaphragmatic hernia without obstruction or gangrene Hyperlipidemia Benign paroxysmal vertigo Asthma Surgical History S/P ACL reconstruction S/P rotator cuff repair Hx laparoscopic cholecystectomy Family History Maternal Grandmother Type II diabetes mellitus Mother Stroke (cerebrum) Brainstem hemorrhage Afib Father Prostate cancer Sister Breast cancer, Onset Age: 40 Brother Jaw cancer Maternal Aunt Pancreatic cancer Maternal Uncle Cancer of unknown origin Social History Housing: Apartment Alcohol intake: current Alcohol intake frequency: holidays/special occasions only Alcohol type: beer Patient Tobacco Use Status: Never used Tobacco e-Cigarette/Vaping Use: Never Used Second Hand Smoke Exposure: No service: No Current occupational status: employed Current occupation: [employer] Cognitive needs: No Hearing needs: No Vision needs: Yes Female Reproductive History Menstrual Age of Menarche: 12 Questionnaire PHQ-9 Over the last 2 weeks, how often have you been bothered by any of the following problems? 1. Little interest or pleasure in doing things: not at all 2. Feeling down, depressed, or hopeless: not at all 3. Trouble falling or staying asleep, or sleeping too much: several days 4. Feeling tired or having little energy: several days 5. Poor appetite or overeating: not at all 6. Feeling bad about yourself - or that you are a failure or have let yourself or your family down: not at all 7. Trouble concentrating on things, such as reading the newspaper or watching television: not at all 8. Moving or speaking so slowly that other people could have noticed. Or the opposite - being so fidgety or restless that you have been moving around a lot more than usual: not at all 9. Thoughts that you would be better off or of hurting yourself in some way: not at all Total score: 2 Depression Screening Interpretation: Negative Depression Screening Done: Yes 23090 - PHQ-9 Billing: Yes Source: Developed by Drs. Sloan Brady, Almita Pena, Cali Hua and colleagues, with an educational jennifer from [employer]. Thrive Questionnaire Date Thrive assessed: 03/31/25 I am a: Patient What is your living situation today?: I have a steady place to live Within the past 12 months, did the food you bought not last and you didn't have the money to get more?: Never true Within the past 12 months, did you worry whether your food would run out before you got money to buy more?: Never true Do you have trouble paying for medicines?: No Do you have trouble getting transportation to medical appointments?: No Do you have trouble paying your heating and electricity bill?: No Do you have trouble taking care of your child, family member or friend?: No Do you have trouble with day-to-day activities such as bathing, preparing meals, shopping, managing finances, etc.?: No Are you currently unemployed and looking for a job?: No Are you interested in more education?: No Please select the resources that you would like help with: None Currently or been in a relationship where the following occur: No concerns reported THRIVE Score: 0 AUDIT C Alcohol Use Questionnaire (AUDIT-C) 1. How often do you have a drink containing alcohol?: Monthly or less 2. How many drinks containing alcohol do you have on a typical day when you are drinking?: 1 or 2 3. How often do you have six or more drinks on one occasion?: Never Total Score: 1 Score Reviewed/Action Taken: Yes LETICIA-7 AMB Questionnaire LETICIA-7 Date LETICIA - 7 assessed: 03/31/25 Feeling nervous, anxious, or on edge: 1 = Several days Not being able to stop or control worryin = Several days Worrying too much about different things: 1 = Several days Trouble relaxin = Not at all Being so restless that it is hard to sit still: 0 = Not at all Becoming easily annoyed or irritable: 0 = Not at all Feeling afraid as if something awful might happen: 0 = Not at all Total LETICIA-7 score (0-4 normal; 5-9 mild; 10-14 moderate; 15-21 severe): 3 Source: Developed by Drs. Sloan Brady, Almita Pena, Cali Hua and colleagues, with an educational jennifer from [employer]. Review of Systems Const Denies chills, Denies fatigue, Denies fever(s) and Denies headache(s) ENT Denies dysphagia, Denies dizziness, Denies otalgia, Denies headache(s), Reports nasal congestion, Denies neck pain, Denies odynophagia, Reports sinus pressure and Denies sore throat Card Denies chest pain, Denies palpitations and Reports dyspnea on exertion (mild) Resp Reports chest congestion, Reports cough (on and off - see HPI), Reports dyspnea on exertion (mild) and Denies wheezing GI Denies abdominal pain, Denies constipation, Denies dysphagia, Denies heartburn, Denies diarrhea, Denies nausea, Denies odynophagia and Denies vomiting Denies difficulty voiding, Denies nocturia and Denies dysuria Musc Denies neck pain Neuro Denies dizziness and Denies headache(s) Endo Denies fatigue and Denies palpitations Aller/Immun Denies wheezing Physical exam (Primary Care) Vital Signs: Last Vital Signs Pulse 90 03/31/25 14:30 BP 122/84 03/31/25 14:30 Pulse Ox 97 03/31/25 14:30 Oxygen Delivery Method Room Air 03/31/25 14:30 BMI result Body Mass Index 36.8 Tobacco/Smoking Status: Tobacco use Status Tobacco use date assessed 03/31/25 03/31/25 14:36 Patient Tobacco Use Status Never used Tobacco 03/31/25 14:36 e-Cigarette/Vaping Use Never Used 03/31/25 14:36 PHQ-9: PHQ-9 Score PHQ-9: Total score 2 03/31/25 14:57 Depression Screening Interpretation: Negative Thrive Assessment: Date of Thrive Assessment Date Thrive assessed 03/31/25 03/31/25 14:36 Currently or been in a relationship where the following occur: No concerns reported Const General: no acute distress and alert HENMT Ears: TM's normal bilaterally and EAC's normal Face and sinus: Yes sinus tenderness (mild) Throat: Yes posterior oropharynx normal and Yes tonsils normal (no TP congestion noted) Neck Neck: Yes supple and No lymphadenopathy Thyroid: Thyroid normal Resp Auscultation: no crackles, no rales, rhonchi (occasional) upper bilaterally, wheezes (occasional) expiratory wheezes and diminished lung sounds bilateral Cardio Rate: regular rate Rhythm: regular rhythm Heart sounds: no murmurs GI Palpation (GI): Soft to palpation and nontender Auscultation: normal bowel sounds General: Yes no CVA tenderness Back/Spine/Pelvis Back: no CVA tenderness Thoracic/Lumbar Spine: No lumbar spinal tenderness Skin Rashes: no rashes Extrem General: Yes no clubbing, cyanosis or edema Coding Level of Care Code Est Pt Level 3 (54269) Diagnoses Exacerbation of persistent asthma, unspecified asthma severity J45.901 Asthma severity: unspecified severity Asthma persistence: persistent Acute non-recurrent sinusitis, unspecified location J01.90 Sinusitis location: unspecified location Recurrence: non-recurrent Chronicity: acute Additional Codes PHQ-9 - 12043 - PHQ-9 Billing: Yes ([id number]) Assessment & Plan Assessment & Plan (1) Asthma exacerbation: Code(s): J45.901 - Unspecified asthma with (acute) exacerbation Category: Medical Qualifiers: Asthma severity: unspecified severity Asthma persistence: persistent Qualified Code(s): J45.901 - Unspecified asthma with (acute) exacerbation (2) Sinusitis: Code(s): J32.9 - Chronic sinusitis, unspecified Category: Medical Qualifiers: Sinusitis location: unspecified location Recurrence: non-recurrent Chronicity: acute Qualified Code(s): J01.90 - Acute sinusitis, unspecified Plan Will start patient empirically on Azithromycin QD x 5 days and on oral Prednisone 20 mg QD x 5 days Continue Wixela Inhub 500-50 mcg 1 inhalation BID, Montelukast 10 mg QD and Albuterol HFA 1 to 2 inhalations Q 6 hours PRN She is instructed to call if she does not experience any significant improvement of her symptoms or if they get worse over the weekend despits her current prescribed Rx Follow up as scheduled next month with her PCP Medications: New prednisone 20 mg PO DAILY 5 tabs 0RF 5 days azithromycin take 500 mg today (day 1), then 250 mg for 4 days (days 2-5) PO 6 tabs 0RF
--- OUTSIDE RECORDS SUMMARY | 2025-03-31 19:39 | XMS_ITS | Clinical Summary ---
Author Organization [facility] Address [address] [place] [address] Phone Care Team Providers Care District Plant Supervisor Name Role Phone Physician, Pcp Unknown Primary [...] on file Sexual Orientation Not on file Last Filed Vital Signs Vital Sign Reading [...] Health Screening 04/26/2024 COVID-19 Vaccine (1 - 2024-2 6 season) 2024 Influenza Vaccine (#1) 2024 RSV [...] patient's age to complete this topic Insurance [facility] Care Teams District Plant Supervisor Relationship Specialty Start Date End Date Physician, Pcp Unknown PCP - General 04/26/24
== END 2025-03-31 14:58 | disposition home or self-care (01) ==
LOC: HO.HMCH 14:27
PROVIDERS: PCP Physician Assistant; Visit Provider Internal Medicine
DX: J45.901 Unspecified asthma with (acute) exacerbation (principal); J01.90 Acute sinusitis, unspecified

== ENCOUNTER → 2025-03-31 14:26 | Outpatient (BNVA) | payer OTHER, SELFPAY | PROVIDERS: PCP Physician Assistant; Visit Provider Internal Medicine | DX: J45.901 Unspecified asthma with (acute) exacerbation (principal); J01.90 Acute sinusitis, unspecified | CPT/HCPCS: 96127 ==

== ENCOUNTER → 2025-04-11 12:59 | Outpatient (REF) | payer OTHER, SELFPAY ==
--- OUTSIDE RECORDS SUMMARY | 2025-04-11 14:04 | XMS_ITS | Clinical Summary ---
Author Organization [facility] Address [address] [place] [address] Phone Care Team Providers Care Pickle Pumper Name Role Phone Physician, Pcp Unknown Primary [...] patient's age to complete this topic Insurance [facility] Care Teams Pickle Pumper Relationship Specialty Start Date End Date Physician, Pcp Unknown PCP - General 04/26/24
== END ==
LOC: HO.SL 12:59
PROVIDERS: PCP Physician Assistant; Visit Provider Physician Assistant
DX: G47.33 Obstructive sleep apnea (adult) (pediatric) (principal)
CPT/HCPCS: 95806

== ENCOUNTER → 2025-04-18 13:10 | Outpatient (BNV) | payer OTHER, SELFPAY | PROVIDERS: PCP Physician Assistant; Visit Provider Psychiatry & Neurology Neurology | DX: G47.33 Obstructive sleep apnea (adult) (pediatric) (principal) | CPT/HCPCS: 95806 ==